=== PATIENT | female | born 1930 | race Caucasian/White ===

== ENCOUNTER 2017-10-03 22:08 | Inpatient (IN) | payer MEDICARE, OTHER ==
[~2017-10-03] VITALS: Ht 160 cm; Wt 84.0 kg
[~2017-10-03 22:08] MED LIST: ALEN70TA45 PO; CHOL50004 PO; CRAN300T PO; Cephalexin Monohydrate PO; DONE10TA44 PO; ESCI20TA PO; LACT1CAP71 PO; LEVO50TA8 PO; LOPE2CAP PO; LOSA1TAB42 PO; MEMA10TA21 PO; METF500T6 PO; METH1ADH6 TP; METH1TAB29 PO; MULT-1152 PO; PRAV40TA3 PO; PRED20TA PO; SITA50TA PO; TRAZ-182 PO; TUSSIN DM PO; ZADITOR EACHEYE
--- NOTE | 2017-10-03 23:40 | NUR ---
Dr. Elam at bedside for MSE.
--- NOTE | 2017-10-04 00:10 | NUR ---
Respiratory at bedside.
[2017-10-04 00:12] LABS: BASOPHILS % (AUTO) 0.3 % (0.0-2.0); EOSINOPHILS # (AUTO) 0.2 K/uL (0.0-0.7); EOSINOPHILS % (AUTO) 1.2 % (0.0-7.0); HEMATOCRIT 31.9 % (31.2-41.9); HEMOGLOBIN 10.5 g/dL (10.9-14.3); LYMPHOCYTES # (AUTO) 1.5 K/uL (20.0-40.0); LYMPHOCYTES % (AUTO) 11.5 % (20.5-51.5); MEAN CORPUSCULAR HEMOGLOBIN 30.7 uug (24.7-32.8); MEAN CORPUSCULAR HGB CONC 33 g/dL (32.3-35.6); MEAN CORPUSCULAR VOLUME 92.8 fL (75.5-95.3); MONOCYTES % (AUTO) 7.4 % (0.0-11.0); NEUTROPHILS # (AUTO) 10.4 K/uL (1.8-8.9); NEUTROPHILS % (AUTO) 79.6 % (38.5-71.5); PLATELET COUNT (AUTO) 232 K/uL (179-408); RED BLOOD CELL COUNT(AUTO) 3.43 MIL/uL (3.63-4.92); WHITE BLOOD COUNT (AUTO) 13.1 K/uL (3.8-11.8)
[2017-10-04 00:17] LABS: ABG BASE EXCESS -0.7 mmol/L; ABG HCO3 26.5 mmol/L; ABG PH 7.293 (7.350-7.450); ABG PO2 64.3 mmHg (75.0-100.0); ABG SITE LEFT RADIAL; ABG TOTAL HEMOGLOBIN 11.3 G/dL (12.0-16.0); COHb 1.5 % (0.5-1.5); O2Hb 89.5 % (94.0-97.0); VENT MODE Nasal Cannula
[2017-10-04 00:24] LABS: CARBON DIOXIDE 28 mmol/L (21-32); CHLORIDE 101 mmol/L (98-107); GLUCOSE 120 mg/dL (74-106); POTASSIUM 3.8 mmol/L (3.5-5.1); UREA NITROGEN, BLOOD 24 mg/dL (7-18)
[2017-10-04 00:37] LABS: ALANINE AMINOTRANSFERASE 23 U/L (14-59); ALKALINE PHOSPHATASE 79 U/L (50-136); ASPARTATE AMINOTRANSFERASE 16 U/L (15-37); BILIRUBIN,DIRECT 0.1 mg/dL (0.0-0.2); BILIRUBIN,TOTAL 0.3 mg/dL (0.2-1.0); TOTAL PROTEIN, SERUM 6.7 g/dL (6.4-8.2)
[2017-10-04] MEDS ORDERED: ALBUTEROL SULFATE 2.5 MG/3 ML NEBU ONE (00:40)
[2017-10-04] MEDS ORDERED: IPRATROPIUM BROMIDE 0.5 MG/2.5 ML NEBU ONE (00:41)
[2017-10-04] MEDS ORDERED: ALBUTEROL SULFATE 2.5 MG/3 ML NEBU NEB ONE (00:45)
[2017-10-04] MEDS ORDERED: IPRATROPIUM BROMIDE 0.5 MG/2.5 ML NEBU NEB ONE (00:45)
[2017-10-04] MEDS ORDERED: methylPREDNISolone SOD SUCC 125 MG/2 ML VIAL IV ONE (01:00)
[2017-10-04] MEDS ORDERED: NITROGLYCERIN OINT 1 GM PACKET TP ONE ×2 (01:00→01:20)
[2017-10-04] MEDS ORDERED: FUROSEMIDE 20 MG/2 ML VIAL IV ONE (01:00)
--- NOTE | 2017-10-04 01:10 | NUR ---
Dr. Elam on panel call with Dr. Martinez.
[2017-10-04] MEDS ORDERED: Z GUARD REMEDY PASTE 57 GM TUBE TOP PRN (01:15)
[2017-10-04] MEDS ORDERED: MAGNESIUM HYDROXIDE 30 ML LIQUID UDC PO PRN (01:15)
[2017-10-04] MEDS ORDERED: ONDANSETRON 4 MG/2 ML VIAL IV PRN (01:15)
[2017-10-04] MEDS ORDERED: FUROSEMIDE 40 MG/4 ML VIAL ONE (01:20)
[2017-10-04] MEDS ORDERED: methylPREDNISolone SOD SUCC 125 MG/2 ML VIAL ONE (01:21)
--- NOTE | 2017-10-04 01:34 | NUR ---
Report given to Luisa BOCANEGRA tele.
[2017-10-04 01:42] LABS: *BILIRUBIN,URIN NEGATIVE (NEGATIVE); *BLOOD, URINE 2+ (NEGATIVE); *CLARITY,URINE CLOUDY (CLEAR); *COLOR,URINE LIGHT YELLOW (YELLOW); *KETONES,URINE NEGATIVE (NEGATIVE); *PROTEIN,URINE 1+ (NEGATIVE); *UROBILINOGEN,URINE 0.2 E.U./dl (NORMAL); LEUKOCYTE ESTERASE ,URINE 3+ (NEGATIVE); NITRITE, URINE NEGATIVE (NEGATIVE); UGLUCOSE NEGATIVE (NEGATIVE)
[2017-10-04 02:00] LABS: RBC,URINE 20-50 /HPF (0-3); WBC,URINE TNTC /HPF (0-3)
[2017-10-04 02:01] LABS: BACTERIA,URINE MANY /HPF (NONE SEEN); SQUAMOUS EPITHELIAL CELL,UR FEW /HPF (NONE SEEN)
--- NOTE | 2017-10-04 02:10 | NUR ---
Admitted a 87 years old female with Diagnosis of COPD. Patient AAO to self only. Able to answer simple questions. With periods of confusion. On O2 at 3LPM via NC in place. Crackles and wheezes heard to lungs upon auscultation. Not in respiratory distress. O2 sat at 94%. HOB elevated. Frequent cough, mostly non-productive. NSR on tele at 73/min. IV site on left hand intact and patent. Accompanied by daughter Shaista. Routine admission care done. Plan of care initiated, Safety measure and call covarrubias within reach.
[2017-10-04 02:30] VITALS: BP 119/53
[2017-10-04 04:00] VITALS: BP 115/67
[2017-10-04] MEDS: ALBUTEROL SULFATE 2.5 MG/ 0.5 ML NEBU NEB PRN ×3 (04:01→22:54)
[2017-10-04] MEDS: methylPREDNISolone SOD SUCC 40 MG/ML VIAL IV SCH ×4 (05:00→23:55)
--- NOTE | 2017-10-04 06:05 | NUR ---
Patient AO to self only. On continuous O2 at 3LPM via NC in place. O2 sat at 95%. Audible breath sound. Crackles and wheezes heard to lungs upon auscultation. Frequent cough, mostly non-productive. Breathing treatment given by RT. NSR on tele at 79/min. IV site on left hand intact and patent. Safety measure maintained and call covarrubias within reach.
--- NOTE | 2017-10-04 07:54 | NUR ---
RECEIVED AN 87 years old female pt, asa case of COPD. Patient AAO to self only. Able to answer simple questions. With periods of confusion. On O2 at 3LPM via NC in place. Crackles and wheezes heard to lungs upon auscultation. HOB elevated. NSR on tele at 73/min. has a 2 iv lines, left AC, rt hand both patent intact and patent [id number]. pt urinating freely walks steady with one person assistance. all Safety measures taken and call covarrubias within reach. Addendum: 10/04/17 at 1002 by CROW CABEZAS RN INCORRECT PATIENT NOTES
[2017-10-04] MEDS ORDERED: DEXTROSE 50% 50 ML DISP.SYRIN IV PRN (08:30)
[2017-10-04] MEDS: CEFTRIAXONE 1 G in IV DEXTROSE 5% 50 ML IV SCH (09:10)
--- NOTE | 2017-10-04 09:15 | NUR ---
PATIENT NOTED TO HAVE WHEEZING, COUGHING NON PRODUCTIVE. PT ON 3L/NC SATURATING 93-94%, NO SOB, PT IS RESPONSIVE. BREATHING TX ORDERED. PT SEEN BY CHILD LIFE SPECIALIST. WILL CONTINUE TO MONITOR.
[2017-10-04 10:00] VITALS: BP 117/56
[2017-10-04] MEDS: IPRATROPIUM BROMIDE 0.5 MG/2.5 ML NEBU NEB SCH ×4 (11:30→22:56)
[2017-10-04] MEDS: ALBUTEROL SULFATE 2.5 MG/3 ML NEBU NEB SCH ×3 (11:30→19:30)
[2017-10-04] MEDS ORDERED: FUROSEMIDE 40 MG/4 ML VIAL IV ONE (11:45)
[2017-10-04] MEDS: BLOOD SUGAR DIAGNOSTIC 1 EACH STRIP VI SCH ×3 (11:49→20:49)
[2017-10-04] MEDS: INSULIN REGULAR, HUMAN 300 UNIT/3 ML VIAL SQ PRN ×3 (12:02→20:55)
--- NOTE | 2017-10-04 12:24 | NUR ---
PRN HHN TX GIVEN AT 0958. NEW ORDER FOR HHN TX TO BE GIVEN Q4. NEXT TX DUE AT 1530.
[2017-10-04] MEDS ORDERED: CRANBERRY EXTRACT 300 MG PO SCH (13:00)
[2017-10-04] MEDS: GUAIFENESIN SUGAR FREE 100 MG/5 ML UDC PO PRN ×2 (15:16→21:02)
[2017-10-04 15:28] VITALS: BP 129/76
[2017-10-04] MEDS ORDERED: MEMANTINE HCL 10 MG TABLET PO SCH (17:00)
[2017-10-04] MEDS: MEMANTINE HCL 10 MG TABLET PO SCH (17:06)
[2017-10-04] MEDS ORDERED: Medication Not On Formulary EA (Pravastatin Sodium 1 TAB) PO SCH (18:00)
--- NOTE | 2017-10-04 18:04 | NUR ---
PATIENT ALERT, RESPONSIVE, IN NO DISTRESS. PATIENT STILL NOTED TO HAVE NON PRODUCTIVE COUGH, WHEEZING, NO SOB. PT'S WHEEZING AND COUGH SLIGHTLY BETTER THAN THIS MORNING. PT STATED "BETTER" WHEN ASKED HOW SHE IS. ASSISTED PATIENT WITH MEALS, KEPT CLEAN/DRY. ACCUCHECKS ORDERED. IV ANTIBIOTICS ADMINISTERED ORDERED NO ADVERSE REACTION NOTED. SAFETY MEASURES IN PLACE. CALL LIGHT WITHIN REACH. WILL CONTINUE TO MONITOR AND ENDORSE TO ONCOMING SHIFT RN.
--- NOTE | 2017-10-04 18:19 | NUR ---
PATIENT ON TELE SINUS RHYTHM.
--- NOTE | 2017-10-04 19:10 | NUR ---
RECEIVED PT ASLEEP ON BED. ON TELE MONITOR SINUS RHYTHM WITH HR OF 79. ON O2 3L, TOLERATED WELL. IV SITE ON L HAND, PATENT AND INTACT. SAFETY MEASURES INITIATED, CALL WATT WITHIN REACH.
[2017-10-04 20:41] VITALS: BP 128/63
[2017-10-04] MEDS: ATORVASTATIN 10 MG TABLET PO SCH (20:47)
[2017-10-05 00:33] VITALS: BP 122/55
[2017-10-05 04:29] VITALS: BP 125/55
[2017-10-05] MEDS: GUAIFENESIN SUGAR FREE 100 MG/5 ML UDC PO PRN ×2 (05:38→20:05)
[2017-10-05] MEDS: ALBUTEROL SULFATE 2.5 MG/ 0.5 ML NEBU NEB PRN (05:45)
[2017-10-05] MEDS ORDERED: methylPREDNISolone SOD SUCC 40 MG/ML VIAL ONE (06:30)
[2017-10-05] MEDS: methylPREDNISolone SOD SUCC 40 MG/ML VIAL IV SCH (06:37)
[2017-10-05] MEDS: LEVOTHYROXINE SODIUM 50 MCG TABLET PO SCH (06:37)
[2017-10-05] MEDS: BLOOD SUGAR DIAGNOSTIC 1 EACH STRIP VI SCH ×4 (06:47→21:42)
[2017-10-05 06:50] LABS: BASOPHILS % (AUTO) 0.1 % (0.0-2.0); HEMATOCRIT 30.9 % (31.2-41.9); HEMOGLOBIN 10.2 g/dL (10.9-14.3); LYMPHOCYTES % (AUTO) 6.4 % (20.5-51.5); MEAN CORPUSCULAR HEMOGLOBIN 30.7 uug (24.7-32.8); MEAN CORPUSCULAR HGB CONC 33 g/dL (32.3-35.6); MEAN CORPUSCULAR VOLUME 92.8 fL (75.5-95.3); MONOCYTES # (AUTO) 0.3 K/uL (2.0-10.0); MONOCYTES % (AUTO) 1.8 % (0.0-11.0); NEUTROPHILS % (AUTO) 91.7 % (38.5-71.5); PLATELET COUNT (AUTO) 263 K/uL (179-408); RED BLOOD CELL COUNT(AUTO) 3.33 MIL/uL (3.63-4.92); WHITE BLOOD COUNT (AUTO) 16.3 K/uL (3.8-11.8)
--- NOTE | 2017-10-05 06:53 | NUR ---
pt alert and responsive, on tele sinus rhythm with HR of 77, on O2 running on 3L, tolerated well. IV site on L hand, patent and intact. all needs attended and met. safe environment maintained at all times, call covarrubias within reach.
[2017-10-05 07:04] LABS: ALANINE AMINOTRANSFERASE 22 U/L (14-59); ALKALINE PHOSPHATASE 75 U/L (50-136); ASPARTATE AMINOTRANSFERASE 12 U/L (15-37); BILIRUBIN,TOTAL 0.2 mg/dL (0.2-1.0); CARBON DIOXIDE 27 mmol/L (21-32); CHLORIDE 103 mmol/L (98-107); CREATINE KINASE, TOTAL 69 U/L (26-192); CREATININE 1.8 mg/dL (0.6-1.3); GLUCOSE 226 mg/dL (74-106); MAGNESIUM 2.2 mg/dL (1.8-2.4); PHOSPHOROUS 2.9 mg/dL (2.5-4.9); TOTAL PROTEIN, SERUM 6.7 g/dL (6.4-8.2); UREA NITROGEN, BLOOD 36 mg/dL (7-18)
[2017-10-05] MEDS: ALBUTEROL SULFATE 2.5 MG/3 ML NEBU NEB SCH ×4 (07:31→19:35)
[2017-10-05] MEDS: IPRATROPIUM BROMIDE 0.5 MG/2.5 ML NEBU NEB SCH ×4 (07:31→19:35)
[2017-10-05] MEDS: INSULIN REGULAR, HUMAN 300 UNIT/3 ML VIAL SQ PRN ×3 (08:00→16:05)
[2017-10-05] MEDS: CHOLECALCIFEROL 1,000 UNIT TABLET PO SCH (08:02)
[2017-10-05] MEDS: LOSARTAN POTASSIUM 50 MG TABLET PO SCH (08:06)
[2017-10-05] MEDS: HYDROCHLOROTHIAZIDE 12.5 MG CAPSULE PO SCH (08:06)
[2017-10-05] MEDS: DONEPEZIL 10 MG TABLET PO SCH (08:06)
[2017-10-05] MEDS: MEMANTINE HCL 10 MG TABLET PO SCH ×2 (08:07→16:02)
[2017-10-05 08:20] LABS: ABG BASE EXCESS -2.9 mmol/L; ABG HCO3 22.4 mmol/L; ABG PCO2 40.8 mmHg (35.0-45.0); ABG PH 7.357 (7.350-7.450); ABG SITE RIGHT RADIAL; ABG TOTAL HEMOGLOBIN 11.4 G/dL (12.0-16.0); COHb 1.3 % (0.5-1.5); MetHb 0.2 % (0.0-1.5)
[2017-10-05] MEDS: CEFTRIAXONE 1 G in IV DEXTROSE 5% 50 ML IV SCH (08:51)
[2017-10-05] MEDS ORDERED: Medication Not On Formulary EA (Losartan/Hydrochlorothiazide (Losartan-Hctz 100-12.5 Mg PO SCH (09:00)
[2017-10-05] MEDS ORDERED: CEFTRIAXONE 1 G in IV DEXTROSE 5% 50 ML IV SCH (09:30)
[2017-10-05 11:12] VITALS: BP 124/51
[2017-10-05] MEDS: methylPREDNISolone SOD SUCC 125 MG/2 ML VIAL IV SCH ×3 (11:41→23:51)
[2017-10-05] MEDS ORDERED: INSULIN REGULAR, HUMAN 300 UNIT/3 ML VIAL SQ ONE (12:15)
[2017-10-05] MEDS ORDERED: DEXTROSE 50% 50 ML DISP.SYRIN IV PRN (12:30)
[2017-10-05 15:32] VITALS: BP 124/55
[2017-10-05 20:00] VITALS: BP 137/54
[2017-10-05] MEDS: ATORVASTATIN 10 MG TABLET PO SCH (20:05)
[2017-10-05] MEDS: HYDROCODONE/APAP 5-325MG TABLET PO PRN (20:05)
[2017-10-05] MEDS: Z GUARD REMEDY PASTE 57 GM TUBE TOP SCH (20:06)
[2017-10-05] MEDS: INSULIN REGULAR, HUMAN 300 UNITS/3 ML VIAL SQ PRN (21:44)
[2017-10-06 00:29] VITALS: BP 132/60
[2017-10-06 04:01] VITALS: BP 148/61
[2017-10-06] MEDS: IPRATROPIUM BROMIDE 0.5 MG/2.5 ML NEBU NEB SCH ×6 (05:20→22:57)
[2017-10-06] MEDS: ALBUTEROL SULFATE 2.5 MG/3 ML NEBU NEB SCH ×6 (05:20→22:57)
[2017-10-06] MEDS: LEVOTHYROXINE SODIUM 50 MCG TABLET PO SCH (05:27)
[2017-10-06] MEDS: methylPREDNISolone SOD SUCC 125 MG/2 ML VIAL IV SCH ×3 (05:27→17:00)
--- NOTE | 2017-10-06 05:36 | NUR ---
Patient slightly short of breath. Repositioned in bed. Paged RT, breathing treatment provided.
[2017-10-06] MEDS: BLOOD SUGAR DIAGNOSTIC 1 EACH STRIP VI SCH ×4 (06:14→20:32)
[2017-10-06 06:29] LABS: BASOPHILS % (AUTO) 0.1 % (0.0-2.0); HEMATOCRIT 31.6 % (31.2-41.9); HEMOGLOBIN 10.5 g/dL (10.9-14.3); LYMPHOCYTES # (AUTO) 1.1 K/uL (20.0-40.0); LYMPHOCYTES % (AUTO) 6.8 % (20.5-51.5); MEAN CORPUSCULAR HEMOGLOBIN 30.6 uug (24.7-32.8); MEAN CORPUSCULAR HGB CONC 33 g/dL (32.3-35.6); MEAN CORPUSCULAR VOLUME 92.4 fL (75.5-95.3); MONOCYTES # (AUTO) 0.4 K/uL (2.0-10.0); MONOCYTES % (AUTO) 2.4 % (0.0-11.0); NEUTROPHILS # (AUTO) 14.1 K/uL (1.8-8.9); NEUTROPHILS % (AUTO) 90.7 % (38.5-71.5); PLATELET COUNT (AUTO) 297 K/uL (179-408); RED BLOOD CELL COUNT(AUTO) 3.43 MIL/uL (3.63-4.92); WHITE BLOOD COUNT (AUTO) 15.5 K/uL (3.8-11.8)
[2017-10-06 06:49] LABS: CARBON DIOXIDE 30 mmol/L (21-32); CHLORIDE 106 mmol/L (98-107); CREATININE 1.8 mg/dL (0.6-1.3); GLUCOSE 261 mg/dL (74-106); POTASSIUM 4.1 mmol/L (3.5-5.1); UREA NITROGEN, BLOOD 42 mg/dL (7-18)
[2017-10-06] MEDS: ALBUTEROL SULFATE 2.5 MG/ 0.5 ML NEBU NEB PRN (07:19)
--- NOTE | 2017-10-06 07:20 | NUR ---
Fairly rested, incontinence care provided. Audible inspiratory/expiratory wheezing noted at this time. Report given to Langston RN. Vital signs WNL, sinus rhythm on the monitor.
[2017-10-06] MEDS: LOSARTAN POTASSIUM 50 MG TABLET PO SCH (08:00)
[2017-10-06] MEDS: MEMANTINE HCL 10 MG TABLET PO SCH ×2 (08:00→17:00)
--- NOTE | 2017-10-06 08:00 | NUR ---
Plan of care implemented for pain management, aspiration and fall precaution. Pt is more awake and alert today but still forgetful. Instructed DAY CAMP UNIT LEADER to thicken liquids and HOB when feeding.
[2017-10-06] MEDS: DONEPEZIL 10 MG TABLET PO SCH (08:01)
[2017-10-06] MEDS: HYDROCHLOROTHIAZIDE 12.5 MG CAPSULE PO SCH (08:01)
[2017-10-06] MEDS: HYDROCODONE/APAP 5-325MG TABLET PO PRN ×2 (08:01→20:13)
[2017-10-06] MEDS: INSULIN REGULAR, HUMAN 300 UNIT/3 ML VIAL SQ PRN ×3 (08:10→17:07)
[2017-10-06] MEDS: CEFTRIAXONE 1 G in IV DEXTROSE 5% 50 ML IV SCH (09:22)
[2017-10-06] MEDS: Z GUARD REMEDY PASTE 57 GM TUBE TOP SCH ×2 (09:22→20:15)
[2017-10-06] MEDS: CHOLECALCIFEROL 1,000 UNIT TABLET PO SCH (09:22)
[2017-10-06] MEDS ORDERED: IV NORMAL SALINE 500 ML BAG IV ONE (10:30)
[2017-10-06 11:02] VITALS: BP 149/71
[2017-10-06] MEDS: ACETAMINOPHEN 325 MG TABLET PO PRN (12:55)
[2017-10-06 15:16] VITALS: BP 148/63
--- NOTE | 2017-10-06 18:00 | NUR ---
Pt is in no acute distress. Plan of care effective. Notified ID re low grade fevers - no new orders received. Pt's temp managed with tylenol and cooling measures current temp 98.9
--- NOTE | 2017-10-06 19:20 | NUR ---
Received patient lying in bed. AAOX1 only. In no acute distress. On O2 at 3LPM via NC. IV site on left hand intact and patent. Afebrile at this time. with temp of 98.0 orally. Safety measure initiated and call covarrubias within reach.
[2017-10-06 20:06] VITALS: BP 148/75
[2017-10-06] MEDS: ATORVASTATIN 10 MG TABLET PO SCH (20:12)
[2017-10-06] MEDS: INSULIN REGULAR, HUMAN 300 UNITS/3 ML VIAL SQ PRN (20:36)
--- NOTE | 2017-10-06 20:39 | NUR ---
Patient FSBS = 443mg/dl, 10 units of Humalin R given per sliding scale. Bethanie Patton made aware of result with no new order given.
--- NOTE | 2017-10-06 21:59 | NUR ---
PATIENT HAS BEEN RESTLESS, FREQUENTLY SCREAMING. TRIED TO REORIENT AND REDIRECT BUT CONTINUE TO BE RESTLESS AND ANXIOUS. SCREEN WRITER Bethanie ANDERSEN MADE AWARE WITH ORDER TO GIVE PT LORAZEPAM 1MG Q6 HRS PRN FOR ANXIETY.
[2017-10-06] MEDS ORDERED: LORAZEPAM 2 MG/1 ML VIAL IV PRN (22:00)
[2017-10-07] MEDS: methylPREDNISolone SOD SUCC 125 MG/2 ML VIAL IV SCH ×2 (00:14→05:02)
[2017-10-07] MEDS: IPRATROPIUM BROMIDE 0.5 MG/2.5 ML NEBU NEB SCH ×5 (03:07→19:44)
[2017-10-07] MEDS: ALBUTEROL SULFATE 2.5 MG/3 ML NEBU NEB SCH ×5 (03:07→19:44)
[2017-10-07 04:00] VITALS: BP 141/69
[2017-10-07] MEDS: ACETAMINOPHEN 325 MG TABLET PO PRN ×2 (04:32→16:49)
--- NOTE | 2017-10-07 04:32 | NUR ---
With temperature of 99.7 orally. Cooling measure as well as Tylenol 650mg po provided. Will continue to monitor.
--- NOTE | 2017-10-07 06:16 | NUR ---
AAOX1 only. Able to follow simple direction and answer simple questions. In no acute distress. Still with occasional audible wheezing. On O2 at 3LPM via NC. HOB kept elevated. IV site on left hand intact and patent. Safety measure maintained and call covarrubias within reach.
[2017-10-07] MEDS: LEVOTHYROXINE SODIUM 50 MCG TABLET PO SCH (06:23)
[2017-10-07] MEDS: BLOOD SUGAR DIAGNOSTIC 1 EACH STRIP VI SCH ×3 (06:42→16:21)
[2017-10-07 06:43] LABS: HEMATOCRIT 31.9 % (31.2-41.9); HEMOGLOBIN 10.6 g/dL (10.9-14.3); LYMPHOCYTES # (AUTO) 0.6 K/uL (20.0-40.0); LYMPHOCYTES % (AUTO) 4.9 % (20.5-51.5); MEAN CORPUSCULAR HEMOGLOBIN 30.8 uug (24.7-32.8); MEAN CORPUSCULAR HGB CONC 33 g/dL (32.3-35.6); MEAN CORPUSCULAR VOLUME 92.8 fL (75.5-95.3); MONOCYTES # (AUTO) 0.4 K/uL (2.0-10.0); MONOCYTES % (AUTO) 3.3 % (0.0-11.0); NEUTROPHILS # (AUTO) 10.7 K/uL (1.8-8.9); NEUTROPHILS % (AUTO) 91.8 % (38.5-71.5); PLATELET COUNT (AUTO) 290 K/uL (179-408); RED BLOOD CELL COUNT(AUTO) 3.43 MIL/uL (3.63-4.92); WHITE BLOOD COUNT (AUTO) 11.7 K/uL (3.8-11.8)
[2017-10-07 06:50] LABS: CARBON DIOXIDE 33 mmol/L (21-32); CHLORIDE 105 mmol/L (98-107); POTASSIUM 3.3 mmol/L (3.5-5.1); UREA NITROGEN, BLOOD 44 mg/dL (7-18)
[2017-10-07 07:12] LABS: GLUCOSE 368 mg/dL (74-106)
--- NOTE | 2017-10-07 08:00 | NUR ---
Plan of care implemented for pain management, aspiration and fall precaution. Pt is more awake and alert today but still forgetful. Instructed HOOP DRIVING MACHINE OPERATOR to thicken liquids and HOB when feeding. Awaiting ST eval. Call light is within reach.
[2017-10-07] MEDS: CHOLECALCIFEROL 1,000 UNIT TABLET PO SCH (08:02)
[2017-10-07] MEDS: HYDROCHLOROTHIAZIDE 12.5 MG CAPSULE PO SCH (08:02)
[2017-10-07] MEDS: MEMANTINE HCL 10 MG TABLET PO SCH ×2 (08:03→16:21)
[2017-10-07] MEDS: LOSARTAN POTASSIUM 50 MG TABLET PO SCH (08:03)
[2017-10-07] MEDS: DONEPEZIL 10 MG TABLET PO SCH (08:03)
[2017-10-07] MEDS: INSULIN REGULAR, HUMAN 300 UNIT/3 ML VIAL SQ PRN ×3 (08:28→16:24)
[2017-10-07] MEDS: Z GUARD REMEDY PASTE 57 GM TUBE TOP SCH (08:39)
[2017-10-07] MEDS: CEFTRIAXONE 1 G in IV DEXTROSE 5% 50 ML IV SCH (08:39)
[2017-10-07 11:58] VITALS: BP 142/85
[2017-10-07 12:07] LABS: ALBUMIN 2.9 g/dL (2.9-4.4); ALPHA-1-GLOBULIN 0.4 g/dL (0.0-0.4); ALPHA-2-GLOBULIN 1.1 g/dL (0.4-1.0); GAMMA GLOBULIN 0.4 g/dL (0.4-1.8); M-SPIKE Not Observed g/dL (Not Observed)
[2017-10-07] MEDS ORDERED: PRED20TA PO (12:09)
[2017-10-07] MEDS ORDERED: CEPH500C2 PO (12:09)
[2017-10-07] MEDS ORDERED: POTASSIUM CHLORIDE 10 MEQ TAB.PRT.SR PO ONE (14:30)
--- NOTE | 2017-10-07 14:30 | NUR ---
Spoke with bright daughter states that [facility] wont be taking patient back. Notified [facility] Case management of situation and gave number to bright. [phone]. Donte to find placement for patient.
[2017-10-07 16:00] VITALS: BP 150/69
--- NOTE | 2017-10-07 16:04 | NUR ---
received patient from [place], DALJIT. patient stable upon initial assessment. patient asleep in bed no s/s acute distress. oxygen in nares. will follow up on possible DC plans
--- NOTE | 2017-10-07 16:50 | NUR ---
tylenol PRN given for low grade temp of 99.6. aware. notified that case management is looking for placement for DC and ok with plan
--- NOTE | 2017-10-07 18:40 | NUR ---
[facility] will be accepting patient. aware and ok for discharge today. tylenol effective. all discharge paperwork complete and signed by 2 nurses due to patients dementia and confused status. report given to transport staff by charge nurse. belongings list completed. patient stable for discharge. ambulance scheduled to arrive at 1945. will report to oncoming shift
--- NOTE | 2017-10-07 20:00 | NUR ---
Patient was discharged on stable condition. Vital signs stable. Belongings left with patient. Patient going to [facility].
[2017-10-07 20:03] VITALS: BP 161/59
[2017-10-07] MEDS ORDERED: methylPREDNISolone SOD SUCC 125 MG/2 ML VIAL IV SCH (21:00)
== END 2017-10-07 20:07 | DRG 291 ==
LOC: ER 22:10 → TELE 10-04 01:55 → MED 10-06 15:00
PROVIDERS: ADMIT Internal Medicine; ATTEND Nurse Practitioner Acute Care
DX: I13.0 Hypertensive heart and chronic kidney disease with heart failure and stage 1 through stage 4 chronic kidney disease, or unspecified chronic kidney disease (principal); I50.33 Acute on chronic diastolic (congestive) heart failure; J96.21 Acute and chronic respiratory failure with hypoxia; J96.22 Acute and chronic respiratory failure with hypercapnia; N17.0 Acute kidney failure with tubular necrosis; G93.40 Encephalopathy, unspecified; J44.1 Chronic obstructive pulmonary disease with (acute) exacerbation; N39.0 Urinary tract infection, site not specified; J98.11 Atelectasis; E11.22 Type 2 diabetes mellitus with diabetic chronic kidney disease; E11.65 Type 2 diabetes mellitus with hyperglycemia; N18.9 Chronic kidney disease, unspecified; Z79.84 Long term (current) use of oral hypoglycemic drugs; E11.36 Type 2 diabetes mellitus with diabetic cataract; F03.90 Unspecified dementia, unspecified severity, without behavioral disturbance, psychotic disturbance, mood disturbance, and anxiety; Z96.651 Presence of right artificial knee joint; E78.5 Hyperlipidemia, unspecified; E03.9 Hypothyroidism, unspecified; D63.8 Anemia in other chronic diseases classified elsewhere; B96.20 Unspecified Escherichia coli [E. coli] as the cause of diseases classified elsewhere; Z16.11 Resistance to penicillins; Z16.23 Resistance to quinolones and fluoroquinolones; T38.0X5A Adverse effect of glucocorticoids and synthetic analogues, initial encounter; Y92.099 Unspecified place in other non-institutional residence as the place of occurrence of the external cause; D72.829 Elevated white blood cell count, unspecified; E66.9 Obesity, unspecified; Z68.32 Body mass index [BMI] 32.0-32.9, adult; Z98.42 Cataract extraction status, left eye; Z98.41 Cataract extraction status, right eye
CPT/HCPCS: 36415; 36600; 70030-TC; 71045; 76770; 83605; 83735; 83970; 84100; 84155; 84165; 84443; 84480; 85025; 85730; 87040; 87086; 92610; 93005; 93307; 94640; 94664; A4663; C1758; J0696; J1815; J1940; J2060; J2920; J2930; J3590; J7030; J7050; J7060

== ENCOUNTER 2018-03-19 09:40 | Inpatient (IN) | payer OTHER ==
[~2018-03-19] VITALS: Ht 160 cm; Wt 77.1 kg
[~2018-03-19 09:40] MED LIST changes: -ALEN70TA45 PO; +ALEN70TA6 PO; +CEPH500C2 PO; -Cephalexin Monohydrate PO; +METF-440 PO; -METF500T6 PO
--- NOTE | 2018-03-19 09:55 | NUR ---
PT BIB [facility] FROM [facility]. PER EMS, PT IS BASELINE A/OX4, BUT THIS MORNING FOUND ALTERED. PT IS CURRENTLY A/OX1 W/ PURPOSEFUL MOVEMENTS AND FOLLOWING COMMANDS. BS WAS 190 IN THE FIELD. NO FACIAL DROOPS. PT DENIES PAIN AT THIS TIME. ER MD AT BEDSIDE FOR MSE.
[2018-03-19 10:19] LABS: BASOPHILS % (AUTO) 0.2 % (0.0-2.0); EOSINOPHILS # (AUTO) 0.1 K/uL (0.0-0.7); EOSINOPHILS % (AUTO) 0.4 % (0.0-7.0); HEMATOCRIT 36.8 % (31.2-41.9); HEMOGLOBIN 12.2 g/dL (10.9-14.3); LYMPHOCYTES # (AUTO) 0.9 K/uL (20.0-40.0); LYMPHOCYTES % (AUTO) 5.9 % (20.5-51.5); MEAN CORPUSCULAR HEMOGLOBIN 29.3 uug (24.7-32.8); MEAN CORPUSCULAR HGB CONC 33 g/dL (32.3-35.6); MEAN CORPUSCULAR VOLUME 88.3 fL (75.5-95.3); MONOCYTES # (AUTO) 0.8 K/uL (2.0-10.0); MONOCYTES % (AUTO) 5.1 % (0.0-11.0); NEUTROPHILS # (AUTO) 13.4 K/uL (1.8-8.9); NEUTROPHILS % (AUTO) 88.4 % (38.5-71.5); PLATELET COUNT (AUTO) 269 K/uL (179-408); RED BLOOD CELL COUNT(AUTO) 4.17 MIL/uL (3.63-4.92); WHITE BLOOD COUNT (AUTO) 15.1 K/uL (3.8-11.8)
--- NOTE | 2018-03-19 10:20 | NUR ---
PT TAKEN TO RADIOLOGY FOR CT SCAN.
[2018-03-19 10:25] LABS: *BILIRUBIN,URIN NEGATIVE (NEGATIVE); *BLOOD, URINE 2+ (NEGATIVE); *CLARITY,URINE CLOUDY (CLEAR); *COLOR,URINE YELLOW (YELLOW); *KETONES,URINE NEGATIVE (NEGATIVE); *UROBILINOGEN,URINE 0.2 E.U./dl (NORMAL); LEUKOCYTE ESTERASE ,URINE 3+ (NEGATIVE); NITRITE, URINE NEGATIVE (NEGATIVE); UGLUCOSE NEGATIVE (NEGATIVE)
[2018-03-19 10:26] LABS: CARBON DIOXIDE 33 mmol/L (21-32); CHLORIDE 96 mmol/L (98-107); CREATININE 1.8 mg/dL (0.6-1.3); GLUCOSE 164 mg/dL (74-106); POTASSIUM 3.1 mmol/L (3.5-5.1); UREA NITROGEN, BLOOD 31 mg/dL (7-18)
[2018-03-19 10:31] LABS: ETHANOL < 3 MG/DL (0-0)
[2018-03-19] MEDS ORDERED: PREDNIZONE PO (10:31)
[2018-03-19] MEDS ORDERED: [UNRECOGNIZED DRUG - OTHER] (10:31)
[2018-03-19] MEDS ORDERED: PROBIOTIC 10 PO (10:31)
[2018-03-19] MEDS ORDERED: IPRATROPIUM INH (10:31)
[2018-03-19] MEDS ORDERED: CHOL200078 PO (10:31)
[2018-03-19] MEDS ORDERED: CRAN200C5 PO ×2 (10:31)
[2018-03-19] MEDS ORDERED: DEXT15CA PO (10:31)
[2018-03-19] MEDS ORDERED: ALBU2.5V13 NEB (10:31)
[2018-03-19] MEDS ORDERED: ASPI-605 PO (10:31)
[2018-03-19] MEDS ORDERED: ESTRACE (10:31)
[2018-03-19] MEDS ORDERED: ALBUTEROL INH (10:31)
[2018-03-19] MEDS ORDERED: ACET-73 PO (10:31)
[2018-03-19] MEDS ORDERED: LORA0.5T PO (10:31)
[2018-03-19] MEDS ORDERED: FURO20TA4 PO (10:31)
[2018-03-19] MEDS ORDERED: AMLO5TAB9 PO (10:31)
[2018-03-19] MEDS ORDERED: DOCU100C36 PO (10:31)
[2018-03-19 10:36] LABS: BACTERIA,URINE FEW /HPF (NONE SEEN); SQUAMOUS EPITHELIAL CELL,UR FEW /HPF (NONE SEEN); WBC,URINE 20-50 /HPF (0-3)
--- NOTE | 2018-03-19 10:36 | NUR ---
PT BACK IN ER FROM RADIOLOGY.
[2018-03-19 10:41] LABS: ACETAMINOPHEN < 2.0 ug/mL (10-30); ALANINE AMINOTRANSFERASE 30 U/L (14-59); ALKALINE PHOSPHATASE 61 U/L (50-136); ASPARTATE AMINOTRANSFERASE 10 U/L (15-37); BILIRUBIN,DIRECT 0.1 mg/dL (0.0-0.2); BILIRUBIN,TOTAL 0.4 mg/dL (0.2-1.0); TOTAL PROTEIN, SERUM 6.4 g/dL (6.4-8.2)
[2018-03-19 10:42] LABS: *AMPHETAMINE, URINE NEGATIVE (NEGATIVE); *BARBITURATE, URINE NEGATIVE (NEGATIVE); *CANNABINOID, URINE NEGATIVE (NEGATIVE); *COCCAINE, URINE NEGATIVE (NEGATIVE); *OPIATE, URINE NEGATIVE (NEGATIVE); *PHENCYCLIDINE SCREEN,URINE NEGATIVE (NEGATIVE)
[2018-03-19 10:53] LABS: THYROID STIMULATING HORMONE 0.858 mIU/mL (0.358-3.740)
[2018-03-19] MEDS ORDERED: IV NORMAL SALINE 1000 ML BAG IV ONE (11:15)
[2018-03-19] MEDS ORDERED: CEFTRIAXONE 1 G in IV DEXTROSE 5% 50 ML IV ONE (11:15)
[2018-03-19] MEDS ORDERED: GENTAMICIN SULFATE INJ 80 MG in IV DEXTROSE 5% 100 ML IV ONE (11:15)
[2018-03-19] MEDS ORDERED: CEFTRIAXONE 1 G VIAL ONE (11:19)
[2018-03-19] MEDS ORDERED: GENTAMICIN SULFATE 80 MG/2 ML VIAL ONE (11:31)
--- NOTE | 2018-03-19 11:35 | NUR ---
PAGED EPIC FOR PANEL CALL - AWAITING CALLBACK FROM JOSE LUIS WAGNER. ATTEMPT 1.
--- NOTE | 2018-03-19 11:41 | NUR ---
MILA LAMBERT SPEAKING W/ JOSE LUIS VP PROJECT ON PHONE RE PT'S ADMISSION.
--- NOTE | 2018-03-19 11:47 | NUR ---
MILA LAMBERT AT BEDSIDE FOR PT UPDATE.
[2018-03-19] MEDS ORDERED: Z GUARD REMEDY PASTE 57 GM TUBE TOP PRN (12:15)
[2018-03-19] MEDS ORDERED: ACETAMINOPHEN 325 MG TABLET PO PRN (12:15)
[2018-03-19] MEDS ORDERED: MAGNESIUM HYDROXIDE 30 ML LIQUID UDC PO PRN (12:15)
[2018-03-19] MEDS ORDERED: ONDANSETRON 4 MG/2 ML VIAL IV PRN (12:15)
[2018-03-19] MEDS ORDERED: HYDROCODONE/APAP 5-325MG TABLET PO PRN (12:15)
--- NOTE | 2018-03-19 12:22 | NUR ---
AWAITING CALL-BACK FROM PT'S INSURANCE FOR POSSIBLE TRANSFER. PT IS READY FOR ADMISSION - ADMITTING ORDERS FROM ADMITTING HOSPITALIST RECEIVED.
[2018-03-19] MEDS ORDERED: CRANBERRY EXTRACT 300 MG PO SCH (13:00)
[2018-03-19] MEDS ORDERED: ACETAMINOPHEN ES 500 MG TABLET PO SCH (14:00)
--- NOTE | 2018-03-19 14:33 | NUR ---
PT OFFERED DIABETIC MEAL - FEEDING HELPED BY FAMILY AT BEDSIDE.
--- NOTE | 2018-03-19 15:21 | NUR ---
NURSING ADVERTISER, ERNESTO GIRON, NOTIFIED RE PT'S INSURANCE DELAY FOR ADMISSION.
--- NOTE | 2018-03-19 15:54 | NUR ---
MULTIPLE CALLS TO INSURANCE HAVE BEEN MADE BY THE ER WELLNESS PROGRAM MANAGER, CONTINUOUSLY NOTIFIED WITH "PENDING STATUS". ALL NECESSARY DOCUMENTS WERE FAXED OVER TO INSURANCE PROVIDER, STILL NO CALLBACK RE PT'S TRANFER. NURSING WINDING INSPECTOR AND TESTER AND CONTRACT ATTORNEY AWARE, BOTH HAVE AGREED AND CONFIRMED TO ADMIT PT TO OUR TELE UNIT SO TO NOT FURTHER DELAY PT CARE.
--- NOTE | 2018-03-19 16:16 | NUR ---
Pt. admitted to TELE 217, under care of YSABEL AMAYA NP. Belongs List completed
--- NOTE | 2018-03-19 16:16 | NUR ---
ADMITTING REPORT GIVEN TO DALJIT MARTIN.
[2018-03-19 16:43] VITALS: BP 101/41
[2018-03-19] MEDS ORDERED: MEMANTINE HCL 10 MG TABLET PO SCH (17:00)
[2018-03-19] MEDS: DOCUSATE SODIUM 100 MG CAPSULE PO SCH ×2 (17:00→20:30)
--- NOTE | 2018-03-19 17:30 | NUR ---
Patient received asleep, arousable to touch, AOx1, on oxygen at 2LPM/NC, not in any form of acute distress. No complain of any pain or discomfort. With jiménez catheter in place and patent, draining yellow, cloudy urine. Routine admission care done. Fall precaution observed. Call placed within reach. BICYCLE REPAIR TECHNICIAN Komal Pruett aware of admission.
[2018-03-19] MEDS ORDERED: Medication Not On Formulary EA (Pravastatin Sodium 1 TAB) PO SCH (18:00)
--- NOTE | 2018-03-19 19:20 | NUR ---
Received patient in bed. Alert and verbally responsive. Able to make needs known. Daughter at bedside. No c/o pain and discomfort at this time. No acute distress. No SOB. On O2 @ 2L via nasal cannula. IV site on left and right antecubital. Patent and intact. No s/s of infiltration. Bee catheter patent and intact. Draining clear yellow urine. Kept clean and dry. Redness noted on nose. Per daughter it is bc she uses CPAP mask at home and patient scratched scab on nose. No s/s of bleeding at this time. All needs attended to promptly. Call light within reach. Will continue to monitor.
--- NOTE | 2018-03-19 19:21 | NUR ---
Notified CLINICAL MATERIAL HANDLER Komal Pruett regarding due PO medications but patient is on NPO, per CLINICAL MATERIAL HANDLER do nursing swallow eval. Patient passed nursing swallow eval informed CLINICAL MATERIAL HANDLER and said ok to administer PO medication. Endorsed accordingly to night nurse.
[2018-03-19] MEDS: ALBUTEROL SULFATE 2.5 MG/ 0.5 ML NEBU NEB SCH (19:57)
[2018-03-19 20:00] VITALS: BP 123/52
[2018-03-19] MEDS: ATORVASTATIN 10 MG TABLET PO SCH (20:30)
[2018-03-19] MEDS: MEMANTINE HCL 5 MG TABLET PO SCH (20:31)
[2018-03-19] MEDS ORDERED: Medication Not On Formulary EA (Methenamine Hippurate 1 GM) PO SCH (21:00)
[2018-03-19] MEDS ORDERED: DEXTROSE 50% 50 ML DISP.SYRIN IV PRN (21:30)
[2018-03-19] MEDS: BLOOD SUGAR DIAGNOSTIC 1 EACH STRIP VI SCH (21:32)
[2018-03-19] MEDS: INSULIN REGULAR, HUMAN 300 UNIT/3 ML VIAL SQ PRN (21:44)
--- NOTE | 2018-03-19 22:56 | NUR ---
Clarified diet orders with WELL TESTER. New orders noted and carried out.
[2018-03-19] MEDS: IV NS 1000 ML 1,000 ML IV PRN (23:25)
[2018-03-20] VITALS: BP 98/41
[2018-03-20] MEDS: ALBUTEROL SULFATE 2.5 MG/ 0.5 ML NEBU NEB SCH ×4 (00:51→19:16)
[2018-03-20 04:00] VITALS: BP 129/58
[2018-03-20] MEDS: PANTOPRAZOLE SODIUM 40 MG VIAL IV SCH (06:04)
[2018-03-20] MEDS: BLOOD SUGAR DIAGNOSTIC 1 EACH STRIP VI SCH ×4 (06:31→21:02)
--- NOTE | 2018-03-20 06:40 | NUR ---
Patient slept comfortably throughout the night. No c/o pain and discomfort. No acute distress. No SOB. On continuous IVF NS @ 75ml/hr for hydration. Tolerating well. Bee catheter patent and intact. Draining clear yellow urine. Kept clean and dry. All needs attending to promptly. Call light within reach. Will continue to monitor.
[2018-03-20 06:46] LABS: BASOPHILS % (AUTO) 0.1 % (0.0-2.0); EOSINOPHILS # (AUTO) 0.1 K/uL (0.0-0.7); EOSINOPHILS % (AUTO) 0.8 % (0.0-7.0); HEMATOCRIT 30.4 % (31.2-41.9); HEMOGLOBIN 10.2 g/dL (10.9-14.3); LYMPHOCYTES # (AUTO) 0.9 K/uL (20.0-40.0); LYMPHOCYTES % (AUTO) 6.7 % (20.5-51.5); MEAN CORPUSCULAR HEMOGLOBIN 29.3 uug (24.7-32.8); MEAN CORPUSCULAR HGB CONC 33 g/dL (32.3-35.6); MEAN CORPUSCULAR VOLUME 87.7 fL (75.5-95.3); MONOCYTES # (AUTO) 0.6 K/uL (2.0-10.0); NEUTROPHILS # (AUTO) 11.3 K/uL (1.8-8.9); NEUTROPHILS % (AUTO) 87.4 % (38.5-71.5); PLATELET COUNT (AUTO) 214 K/uL (179-408); RED BLOOD CELL COUNT(AUTO) 3.47 MIL/uL (3.63-4.92)
[2018-03-20 06:57] LABS: CARBON DIOXIDE 30 mmol/L (21-32); CHLORIDE 104 mmol/L (98-107); CHOLESTEROL 130 mg/dL (<200); CREATININE 1.5 mg/dL (0.6-1.3); GLUCOSE 118 mg/dL (74-106); HDL CHOLESTEROL 61 mg/dL (40-60); MAGNESIUM 2.2 mg/dL (1.8-2.4); PHOSPHOROUS 2.6 mg/dL (2.5-4.9); TRIGLYCERIDES 110 MG/DL (30-150); UREA NITROGEN, BLOOD 22 mg/dL (7-18)
[2018-03-20 07:10] LABS: THYROID STIMULATING HORMONE 0.988 mIU/mL (0.358-3.740)
--- NOTE | 2018-03-20 07:30 | NUR ---
RECEIVED REPORT FROM WICK AND BASE ASSEMBLER NURSE, PATIENT IN BED ASLEEP. NO DISTRESS NOTED AT THIS TIME, BED IN LOW POSITION, SIDE RAILS UP X2, BED ALARM ON.
[2018-03-20] MEDS ORDERED: Medication Not On Formulary EA (Lactobacillus Combo No.11 (Probiotic) 1 EACH) PO SCH (09:00)
[2018-03-20] MEDS ORDERED: predniSONE 20 MG TABLET PO SCH (09:00)
[2018-03-20] MEDS: LEVOTHYROXINE SODIUM 50 MCG TABLET PO SCH (09:00)
[2018-03-20] MEDS: LOSARTAN POTASSIUM 50 MG TABLET PO SCH (09:00)
[2018-03-20] MEDS ORDERED: Medication Not On Formulary EA (Escitalopram Oxalate (Lexapro) 1 TAB) PO SCH (09:00)
[2018-03-20] MEDS: AMLODIPINE 5 MG TABLET PO SCH (09:00)
[2018-03-20] MEDS ORDERED: CHOLECALCIFEROL 1,000 UNIT TABLET PO SCH ×2 (09:00)
[2018-03-20] MEDS ORDERED: Medication Not On Formulary EA (Losartan/Hydrochlorothiazide (Losartan-Hctz 100-12.5 Mg PO SCH (09:00)
[2018-03-20] MEDS: FUROSEMIDE 20 MG TABLET PO SCH (09:16)
[2018-03-20] MEDS: ESCITALOPRAM OXALATE 10 MG TABLET PO SCH (09:16)
[2018-03-20] MEDS: MEMANTINE HCL 5 MG TABLET PO SCH ×2 (09:17→20:55)
[2018-03-20] MEDS: CULTURELLE CAPSULE PO SCH (09:17)
[2018-03-20] MEDS: DOCUSATE SODIUM 100 MG CAPSULE PO SCH ×3 (09:18→20:55)
[2018-03-20] MEDS: BETA CAROTENE/VIT C & E/MIN TABLET PO SCH (09:19)
[2018-03-20] MEDS: CHOLECALCIFEROL 1,000 UNIT TABLET PO SCH (09:19)
[2018-03-20] MEDS: ASPIRIN EC 81 MG TABLET.DR PO SCH (09:19)
[2018-03-20] MEDS: DONEPEZIL 10 MG TABLET PO SCH (09:19)
[2018-03-20] MEDS: HYDROCHLOROTHIAZIDE 12.5 MG CAPSULE PO SCH (09:26)
[2018-03-20] MEDS: CEFTRIAXONE 1 G in IV DEXTROSE 5% 50 ML IV SCH (10:22)
[2018-03-20 12:09] VITALS: BP 112/41
[2018-03-20] MEDS ORDERED: PRED20TA PO (12:54)
[2018-03-20] MEDS ORDERED: ASCO500C18 PO (12:54)
[2018-03-20] MEDS ORDERED: PROP15DR EACHEYE (12:57)
[2018-03-20] MEDS ORDERED: POTASSIUM CHLORIDE 10 MEQ TAB.PRT.SR PO ONE (13:00)
[2018-03-20] MEDS: IV NS 1000 ML 1,000 ML IV PRN (13:55)
[2018-03-20] MEDS ORDERED: MV-M1CAP18 PO (14:17)
[2018-03-20] MEDS ORDERED: IPRA0.2S48 NEB (14:21)
[2018-03-20 15:47] VITALS: BP 114/50
[2018-03-20] MEDS ORDERED: POTASSIUM CHLORIDE 20 MEQ TAB.PRT.SR PO ONE (17:00)
[2018-03-20] MEDS: INSULIN REGULAR, HUMAN 300 UNIT/3 ML VIAL SQ PRN ×2 (17:15→21:42)
--- NOTE | 2018-03-20 18:02 | NUR ---
CLIENT HAS BEEN COOPERATIVE WITH CARE, BECAME MORE ALERT DAY PROGRESSED. ALL NEEDS MET, NO DISTRESS NOTED AT THIS TIME. BED IN LOW POSITION. SIDE RAILS UP X2.
--- NOTE | 2018-03-20 19:53 | NUR ---
PATIENT IS AWAKE IN BED, AAOX2 WITH CONFUSION. NO S/S OF PAIN OR ACUTE DISTRESS ON ASSESSMENT. SAFETY MEASURES IN PLACE, WILL CONTINUE TO MONITOR PATIENT
[2018-03-20 20:00] VITALS: BP 109/40
[2018-03-20] MEDS: ATORVASTATIN 10 MG TABLET PO SCH (20:55)
[2018-03-21] MEDS: ALBUTEROL SULFATE 2.5 MG/ 0.5 ML NEBU NEB SCH ×3 (00:55→13:41)
[2018-03-21 05:39] VITALS: BP 119/57
[2018-03-21] MEDS: PANTOPRAZOLE SODIUM 40 MG VIAL IV SCH (06:34)
[2018-03-21] MEDS: LEVOTHYROXINE SODIUM 50 MCG TABLET PO SCH (06:34)
[2018-03-21] MEDS: IV NS 1000 ML 1,000 ML IV PRN (06:35)
[2018-03-21] MEDS: BLOOD SUGAR DIAGNOSTIC 1 EACH STRIP VI SCH ×3 (06:43→16:31)
--- NOTE | 2018-03-21 06:48 | NUR ---
PATIENT SLEPT WELL THROUGHOUT THE SHIFT, CONTINUES TO BE CONFUSED BUT ABLE TO REDIRECT. NO ACUTE DISTRESS OR S/S OF PAIN ON THIS SHIFT. SAFETY MEASURES MAINTAINED AT ALL TIMES
[2018-03-21 07:07] LABS: EOSINOPHILS # (AUTO) 0.1 K/uL (0.0-0.7); HEMOGLOBIN 10.4 g/dL (10.9-14.3); MONOCYTES # (AUTO) 0.5 K/uL (2.0-10.0)
[2018-03-21 07:20] LABS: BASOPHILS % (AUTO) 0.2 % (0.0-2.0); EOSINOPHILS % (AUTO) 1.1 % (0.0-7.0); HEMATOCRIT 30.7 % (31.2-41.9); LYMPHOCYTES # (AUTO) 1.1 K/uL (20.0-40.0); LYMPHOCYTES % (AUTO) 11.5 % (20.5-51.5); MEAN CORPUSCULAR HEMOGLOBIN 29.9 uug (24.7-32.8); MEAN CORPUSCULAR HGB CONC 34 g/dL (32.3-35.6); MEAN CORPUSCULAR VOLUME 88.4 fL (75.5-95.3); MONOCYTES % (AUTO) 4.9 % (0.0-11.0); NEUTROPHILS # (AUTO) 7.8 K/uL (1.8-8.9); NEUTROPHILS % (AUTO) 82.3 % (38.5-71.5); PLATELET COUNT (AUTO) 208 K/uL (179-408); RED BLOOD CELL COUNT(AUTO) 3.47 MIL/uL (3.63-4.92)
[2018-03-21 07:21] LABS: WHITE BLOOD COUNT (AUTO) 9.5 K/uL (3.8-11.8)
[2018-03-21 07:23] LABS: CARBON DIOXIDE 28 mmol/L (21-32); CHLORIDE 105 mmol/L (98-107); CREATININE 1.3 mg/dL (0.6-1.3); GLUCOSE 110 mg/dL (74-106); MAGNESIUM 2.2 mg/dL (1.8-2.4); PHOSPHOROUS 2.4 mg/dL (2.5-4.9); POTASSIUM 3.3 mmol/L (3.5-5.1); UREA NITROGEN, BLOOD 17 mg/dL (7-18)
--- NOTE | 2018-03-21 07:30 | NUR ---
RECEIVED SHIFT REPORT FROM NIGHT NURSE. PATIENT IS AWAKE AND ON BREATHING TREATMENT THAT SHE RECEIVES ROUTINELY. OTHER THAN THAT SHE IS ON 2L OF OXYGEN VIA NASAL CANNULA. PATIENT IS ORIENTED X1/2. RECEIVING HYDRATION AT 75 ML THROUGH LEFT AC. PATIENT HAS A LEIVA CATHETER AND IT IS DRAINING APPROPRIATELY. WILL CARRY OUT PLAN OF CARE, ANTIBIOTICS AND ACCUCHECKS. NO SIGNS OF DISTRESS NOTED, WILL CONTINUE TO MONITOR.
[2018-03-21] MEDS: LOSARTAN POTASSIUM 50 MG TABLET PO SCH (09:00)
[2018-03-21] MEDS ORDERED: predniSONE 20 MG TABLET PO SCH (09:00)
[2018-03-21] MEDS: MEMANTINE HCL 5 MG TABLET PO SCH (09:00)
[2018-03-21] MEDS: FUROSEMIDE 20 MG TABLET PO SCH (09:00)
[2018-03-21] MEDS: DOCUSATE SODIUM 100 MG CAPSULE PO SCH ×2 (09:00→16:41)
[2018-03-21] MEDS: DONEPEZIL 10 MG TABLET PO SCH (09:00)
[2018-03-21] MEDS: HYDROCHLOROTHIAZIDE 12.5 MG CAPSULE PO SCH (09:00)
[2018-03-21] MEDS: AMLODIPINE 5 MG TABLET PO SCH (09:00)
[2018-03-21] MEDS: CHOLECALCIFEROL 1,000 UNIT TABLET PO SCH (09:00)
[2018-03-21] MEDS: BETA CAROTENE/VIT C & E/MIN TABLET PO SCH (09:00)
[2018-03-21] MEDS: ASPIRIN EC 81 MG TABLET.DR PO SCH (09:00)
[2018-03-21] MEDS: CULTURELLE CAPSULE PO SCH (09:00)
[2018-03-21] MEDS: ESCITALOPRAM OXALATE 10 MG TABLET PO SCH (09:00)
[2018-03-21 11:05] VITALS: BP 119/47
[2018-03-21] MEDS: INSULIN REGULAR, HUMAN 300 UNIT/3 ML VIAL SQ PRN ×2 (11:53→16:33)
[2018-03-21] MEDS: CEFTRIAXONE 1 G in IV DEXTROSE 5% 50 ML IV SCH (11:54)
[2018-03-21] MEDS ORDERED: IPRATROPIUM BROMIDE 0.5 MG/2.5 ML NEBU NEB SCH (13:30)
[2018-03-21] MEDS ORDERED: CEPH-570 PO (14:05)
[2018-03-21] MEDS ORDERED: MAGNESIUM OXIDE 400 MG TABLET PO ONE (14:15)
[2018-03-21 15:18] VITALS: BP 123/52
[2018-03-21] MEDS ORDERED: NEUTRA PHOS PACKET PO ONE (15:45)
--- NOTE | 2018-03-21 18:15 | NUR ---
PATIENT DISCHARGED TO ASSISTED LIVING VIA PRIVATE CAR WITH DAUGHTER. REMOVED IV LINE AND WRISTBAND. PATIENT STABLE. TAKEN DOWN TO CAR ACCOMPANIED BY PHONE OPERATOR IN WHEELCHAIR.
[2018-03-22] MEDS ORDERED: PANTOPRAZOLE SODIUM 40 MG TABLET.DR PO SCH (07:00)
[2018-03-22] MEDS ORDERED: Medication Not On Formulary EA (Ascorbic Acid (Vitamin C) 1,000 MG) PO SCH (09:00)
[2018-03-22] MEDS ORDERED: ASCORBIC ACID 500 MG TABLET PO SCH (09:00)
[2018-03-22] MEDS ORDERED: predniSONE 20 MG TABLET PO SCH (09:00)
[2018-03-22] MEDS ORDERED: LOPERAMIDE HCL 2 MG CAPSULE PO SCH (09:00)
[2018-03-24] MEDS ORDERED: ALENDRONATE SODIUM 70 MG TABLET PO SCH (07:00)
== END 2018-03-21 18:15 | DRG 682 ==
LOC: ER 09:40 → TELE 16:18 → MED 03-20 10:47
PROVIDERS: ADMIT Registered Nurse; ATTEND Registered Nurse
DX: N17.0 Acute kidney failure with tubular necrosis (principal); G92 Toxic encephalopathy; N39.0 Urinary tract infection, site not specified; E44.1 Mild protein-calorie malnutrition; I13.0 Hypertensive heart and chronic kidney disease with heart failure and stage 1 through stage 4 chronic kidney disease, or unspecified chronic kidney disease; I50.30 Unspecified diastolic (congestive) heart failure; B96.20 Unspecified Escherichia coli [E. coli] as the cause of diseases classified elsewhere; Z16.11 Resistance to penicillins; Z16.29 Resistance to other single specified antibiotic; E78.5 Hyperlipidemia, unspecified; Z79.82 Long term (current) use of aspirin; Z79.84 Long term (current) use of oral hypoglycemic drugs; I48.91 Unspecified atrial fibrillation; M81.0 Age-related osteoporosis without current pathological fracture; M48.02 Spinal stenosis, cervical region; M25.78 Osteophyte, vertebrae; E03.9 Hypothyroidism, unspecified; F32.9 Major depressive disorder, single episode, unspecified; F41.9 Anxiety disorder, unspecified; E66.9 Obesity, unspecified; Z68.30 Body mass index [BMI] 30.0-30.9, adult; I49.1 Atrial premature depolarization; F03.90 Unspecified dementia, unspecified severity, without behavioral disturbance, psychotic disturbance, mood disturbance, and anxiety; Z71.3 Dietary counseling and surveillance; E11.22 Type 2 diabetes mellitus with diabetic chronic kidney disease; N18.9 Chronic kidney disease, unspecified; J44.9 Chronic obstructive pulmonary disease, unspecified; Z99.81 Dependence on supplemental oxygen; Z87.440 Personal history of urinary (tract) infections; M53.82 Other specified dorsopathies, cervical region; E87.6 Hypokalemia; E86.0 Dehydration; E78.00 Pure hypercholesterolemia, unspecified; G31.9 Degenerative disease of nervous system, unspecified
CPT/HCPCS: 36415; 70030-TC; 70450; 71045; 72125; 80307; 83605; 83735; 84100; 84443; 85025; 85730; 87040; 87077; 87086; 93005; 93880; 94640; 94664; 97110; 97116; 97530; A4663; C9113; G0378; G0480; G0480-TC; J0696; J1580; J1815; J3590; J7030; J7060; J7512

== ENCOUNTER 2018-11-16 18:08 | Inpatient (IN) | payer OTHER ==
[~2018-11-16] VITALS: Ht 157.5 cm; Wt 86.8 kg
[~2018-11-16 18:08] MED LIST changes: +ACET-73 PO; +ALBU2.5V13 NEB; +ALBUTEROL INH; +AMLO5TAB9 PO; +ASCO500C18 PO; +ASPI-605 PO; +CEPH-570 PO; -CEPH500C2 PO; +CHOL200078 PO; -CHOL50004 PO; +CRAN200C5 PO; -CRAN300T PO; +DOCU100C36 PO; +ESTRACE; +FURO20TA4 PO; +IPRA0.2S48 NEB; +IPRATROPIUM INH; -LOSA1TAB42 PO; -METF-440 PO; +PROP15DR EACHEYE
[2018-11-16] MEDS ORDERED: IPRATROPIUM BROMIDE 0.5 MG/2.5 ML NEBU NEB ONE (18:45)
[2018-11-16] MEDS ORDERED: ALBUTEROL SULFATE 2.5 MG/3 ML NEBU NEB ONE (18:45)
[2018-11-16] MEDS ORDERED: ALBUTEROL SULFATE 2.5 MG/3 ML NEBU ONE (19:00)
[2018-11-16] MEDS ORDERED: IPRATROPIUM BROMIDE 0.5 MG/2.5 ML NEBU ONE (19:00)
[2018-11-16 19:02] LABS: BASOPHILS % (AUTO) 0.2 % (0.0-2.0); EOSINOPHILS # (AUTO) 0.2 K/uL (0.0-0.7); HEMATOCRIT 32.8 % (31.2-41.9); LYMPHOCYTES # (AUTO) 1.7 K/uL (20.0-40.0); LYMPHOCYTES % (AUTO) 8.7 % (20.5-51.5); MEAN CORPUSCULAR HGB CONC 33 g/dL (32.3-35.6); MEAN CORPUSCULAR VOLUME 86.9 fL (75.5-95.3); MONOCYTES # (AUTO) 0.9 K/uL (2.0-10.0); MONOCYTES % (AUTO) 4.8 % (0.0-11.0); NEUTROPHILS # (AUTO) 16.3 K/uL (1.8-8.9); NEUTROPHILS % (AUTO) 85.3 % (38.5-71.5); PLATELET COUNT (AUTO) 250 K/uL (179-408); RED BLOOD CELL COUNT(AUTO) 3.78 MIL/uL (3.63-4.92); WHITE BLOOD COUNT (AUTO) 19.1 K/uL (3.8-11.8)
[2018-11-16 19:06] LABS: CARBON DIOXIDE 32 mmol/L (21-32); CHLORIDE 99 mmol/L (98-107); CREATININE 1.9 mg/dL (0.6-1.3); GLUCOSE 203 mg/dL (74-106); POTASSIUM 3.9 mmol/L (3.5-5.1); UREA NITROGEN, BLOOD 24 mg/dL (7-18)
[2018-11-16 19:19] LABS: *BILIRUBIN,URIN NEGATIVE (NEGATIVE); *BLOOD, URINE 3+ (NEGATIVE); *CLARITY,URINE CLOUDY (CLEAR); *COLOR,URINE PINK (YELLOW); *KETONES,URINE NEGATIVE (NEGATIVE); *UROBILINOGEN,URINE 0.2 E.U./dl (NORMAL); LEUKOCYTE ESTERASE ,URINE 3+ (NEGATIVE); NITRITE, URINE NEGATIVE (NEGATIVE); UGLUCOSE NEGATIVE (NEGATIVE)
--- NOTE | 2018-11-16 19:21 | NUR ---
SHIFT REPORT GIVEN TO AUSTIN Mccoy RN.
[2018-11-16 19:23] LABS: ALANINE AMINOTRANSFERASE 15 U/L (14-59); ALKALINE PHOSPHATASE 81 U/L (50-136); ASPARTATE AMINOTRANSFERASE 13 U/L (15-37); BILIRUBIN,DIRECT 0.1 mg/dL (0.0-0.2); BILIRUBIN,TOTAL 0.3 mg/dL (0.2-1.0); TOTAL PROTEIN, SERUM 6.7 g/dL (6.4-8.2)
[2018-11-16 19:51] LABS: BACTERIA,URINE MODERATE /HPF (NONE SEEN); RBC,URINE 80-100 /HPF (0-3); SQUAMOUS EPITHELIAL CELL,UR MODERATE /HPF (NONE SEEN); WBC,URINE TNTC /HPF (0-3)
[2018-11-16] MEDS ORDERED: CEFTRIAXONE 2 G in IV DEXTROSE 5% 100 ML IV ONE (20:00)
[2018-11-16] MEDS ORDERED: CEFTRIAXONE 1 G VIAL ONE (20:08)
--- NOTE | 2018-11-16 20:45 | NUR ---
ROBINA IVPB 2GRAM COMPLETED AT 2044.
[2018-11-16] MEDS ORDERED: ELLURA PO (21:03)
[2018-11-16] MEDS ORDERED: MV-M1CAP18 PO (21:03)
[2018-11-16] MEDS ORDERED: POTA20TA10 PO (21:03)
[2018-11-16] MEDS ORDERED: MELA5TAB PO (21:03)
[2018-11-16] MEDS ORDERED: PROP15DR OP (21:03)
[2018-11-16] MEDS ORDERED: CYAN-51 PO (21:03)
[2018-11-16] MEDS ORDERED: methylPREDNISolone SOD SUCC 125 MG/2 ML VIAL IV ONE (21:30)
[2018-11-16] MEDS ORDERED: methylPREDNISolone SOD SUCC 125 MG/2 ML VIAL ONE (21:41)
--- NOTE | 2018-11-16 21:53 | NUR ---
Pt. admitted to Med/Surg, under care of Dr. Carmen Mahmood NP. Diagnosis: Urinary Tract Infection Belongs List completed. MRSA swab done.
[2018-11-16 21:56] LABS: ABG BASE EXCESS 3.9 mmol/L; ABG HCO3 28.9 mmol/L; ABG PCO2 45.6 mmHg (35.0-45.0); ABG PO2 73.2 mmHg (75.0-100.0); ABG SITE LEFT RADIAL; ABG TOTAL HEMOGLOBIN 10.6 G/dL (12.0-16.0); MetHb 0.2 % (0.0-1.5); O2Hb 93.1 % (94.0-97.0); VENT MODE Nasal Cannula
--- NOTE | 2018-11-16 21:57 | NUR ---
Dr. Corrigan spoke to Dr. Harrison ([facility]) on telephone. Pt to be admitted here.
[2018-11-16] MEDS: CULTURELLE CAPSULE PO SCH (22:00)
[2018-11-16] MEDS: ATORVASTATIN 40 MG TABLET PO SCH (22:00)
[2018-11-16] MEDS ORDERED: ONDANSETRON 4 MG/2 ML VIAL IV PRN (22:00)
[2018-11-16] MEDS: MEMANTINE HCL 10 MG TABLET PO SCH (22:00)
[2018-11-16] MEDS: DONEPEZIL 10 MG TABLET PO SCH (22:00)
[2018-11-16] MEDS ORDERED: ALENDRONATE SODIUM 70 MG TABLET PO SCH (22:00)
[2018-11-16] MEDS ORDERED: DEXTROSE 50% 50 ML DISP.SYRIN IV PRN (22:00)
[2018-11-16] MEDS ORDERED: Z GUARD REMEDY PASTE 57 GM TUBE TOP PRN (22:00)
[2018-11-16] MEDS ORDERED: HYDROCODONE/APAP 5-325MG TABLET PO PRN (22:00)
--- NOTE | 2018-11-16 22:20 | NUR ---
RECEIVED PT FROM ER VIA AURELIO. DX:URINARY TRACT INFECTION UNDER DR. DORIAN DIEGO WIRE COILER. BELONGING LIST DONE. ADMISSION PROCESS AND CARE PLAN INITIATED. PT IN NO ACUTE DISTRESS.DETENTION ASSESSMENT DONE. FAMILY AT BEDSIDE. WILL CONTINUE TO MONITOR.
[2018-11-16 22:45] VITALS: BP 143/65
[2018-11-16] MEDS: IV NS 1000 ML 1,000 ML IV PRN (23:32)
[2018-11-17 05:15] VITALS: BP 125/54
--- NOTE | 2018-11-17 06:16 | NUR ---
PT SLEPT THROUGHOUT THE SHIFT. PT SHOWS NO SIGNS OF ACUTE DISTRESS. IV INTACT. PT ON 2L NASAL CANNULA. PT TENDS TO TAKE OFF HER OXYGEN NEED REORIENTATION. SAFETY AND COMFORT PROVIDED. WILL ENDORSE TO INCOMING NURSE FOR CONTINUITY OF CARE.
[2018-11-17] MEDS: LEVOTHYROXINE SODIUM 50 MCG TABLET PO SCH (06:34)
[2018-11-17] MEDS: BLOOD SUGAR DIAGNOSTIC 1 EACH STRIP VI SCH ×4 (06:35→20:21)
[2018-11-17 06:50] LABS: HEMATOCRIT 31.6 % (31.2-41.9); HEMOGLOBIN 10.2 g/dL (10.9-14.3); LYMPHOCYTES # (AUTO) 0.8 K/uL (20.0-40.0); LYMPHOCYTES % (AUTO) 4.5 % (20.5-51.5); MEAN CORPUSCULAR HEMOGLOBIN 28.4 uug (24.7-32.8); MEAN CORPUSCULAR HGB CONC 32 g/dL (32.3-35.6); MEAN CORPUSCULAR VOLUME 87.8 fL (75.5-95.3); MONOCYTES # (AUTO) 0.1 K/uL (2.0-10.0); MONOCYTES % (AUTO) 0.3 % (0.0-11.0); NEUTROPHILS % (AUTO) 95.2 % (38.5-71.5); PLATELET COUNT (AUTO) 231 K/uL (179-408); RED BLOOD CELL COUNT(AUTO) 3.59 MIL/uL (3.63-4.92); WHITE BLOOD COUNT (AUTO) 16.8 K/uL (3.8-11.8)
[2018-11-17 07:27] LABS: CARBON DIOXIDE 29 mmol/L (21-32); CHLORIDE 102 mmol/L (98-107); CHOLESTEROL 131 mg/dL (<200); GLUCOSE 259 mg/dL (74-106); HDL CHOLESTEROL 60 mg/dL (40-60); MAGNESIUM 2.3 mg/dL (1.8-2.4); PHOSPHOROUS 3.7 mg/dL (2.5-4.9); TRIGLYCERIDES 18 MG/DL (30-150); UREA NITROGEN, BLOOD 25 mg/dL (7-18)
[2018-11-17] MEDS: CYANOCOBALAMIN 1,000 MCG TABLET PO SCH (08:32)
[2018-11-17] MEDS: ESCITALOPRAM OXALATE 10 MG TABLET PO SCH (08:32)
[2018-11-17] MEDS: DOCUSATE SODIUM 100 MG CAPSULE PO SCH ×2 (08:33→17:53)
[2018-11-17] MEDS: CHOLECALCIFEROL 1,000 UNIT TABLET PO SCH (08:33)
[2018-11-17] MEDS: POTASSIUM CHLORIDE 20 MEQ TAB.PRT.SR PO SCH (08:33)
[2018-11-17] MEDS: ASCORBIC ACID 500 MG TABLET PO SCH (08:33)
[2018-11-17] MEDS: CULTURELLE CAPSULE PO SCH ×2 (08:33→20:20)
[2018-11-17] MEDS: MULTIVITAMINS,THERAPEUTIC TABLET PO SCH (08:33)
[2018-11-17] MEDS: AMLODIPINE 5 MG TABLET PO SCH (08:34)
[2018-11-17] MEDS: INSULIN REGULAR, HUMAN 300 UNIT/3 ML VIAL SQ PRN ×3 (08:36→20:24)
[2018-11-17 08:52] VITALS: BP 132/68
[2018-11-17 10:56] VITALS: BP 144/61
--- NOTE | 2018-11-17 11:45 | NUR ---
Received patient from recovery. Vital signs are stable. Patient resting comfortably in bed. Receiving 2L o2 via NC. Patient will not be followed by hospital bucket hooker but by surgeon Dr. Evans. Will continue to monitor throughout shift. Addendum: 11/17/18 at 1853 by FITZ MARIO RN Wrong patient
[2018-11-17] MEDS: IV NS 1000 ML 1,000 ML IV PRN (13:41)
[2018-11-17 15:22] VITALS: BP 122/50
[2018-11-17] MEDS: ASPIRIN EC 81 MG TABLET.DR PO SCH (17:53)
[2018-11-17] MEDS: MEMANTINE HCL 10 MG TABLET PO SCH (17:53)
--- NOTE | 2018-11-17 18:48 | NUR ---
Patient resting comfortably in bed. Complain of abdominal and back pain; medicated with PRN morphine accordingly. Patient relieved with medication. Patient continues to be on clear liquid diet as she is not tolerating this. Continue to receive D5LR at 125 cc/hr on right wrist. Advance diet as tolerated and decrease IV fluids when patient is able to eat. Continue strict I&Os. Bee still in place and dwelling well. Output of 400cc on AM shift. Vital signs are stable at this time. Continue to manage pain and monitor output. Will endorse to cage shift manager nurse accordingly. Addendum: 11/17/18 at 1853 by FITZ MARIO RN Wrong patient
--- NOTE | 2018-11-17 19:20 | NUR ---
RECEIVED PT AWAKE, ALERT AND ORIENTEDX3. PT SHOWS NO SIGNS OF ACUTE DISTRESS. IV INTACT. SAFETY AND COMFORT PROVIDED. PT ON 2L NASAL CANNULA. WILL CONTINUE TO MONITOR.
--- NOTE | 2018-11-17 19:31 | NUR ---
Patient in no acute distress. Compliant with care and medication. IV intact and patent. Safety and comfort provided at all times. Will endorse to residential monitor nurse accordingly.
[2018-11-17] MEDS: CEFTRIAXONE 1 G in IV DEXTROSE 5% 50 ML IV SCH (19:54)
[2018-11-17 20:18] VITALS: BP 115/50
[2018-11-17] MEDS: ATORVASTATIN 40 MG TABLET PO SCH (20:20)
[2018-11-17] MEDS: methylPREDNISolone SOD SUCC 40 MG/ML VIAL IV SCH (20:20)
[2018-11-17] MEDS: ACETAMINOPHEN 325 MG TABLET PO PRN (20:21)
[2018-11-17] MEDS: DONEPEZIL 10 MG TABLET PO SCH (20:21)
[2018-11-17 21:32] LABS: *BILIRUBIN,URIN NEGATIVE (NEGATIVE); *BLOOD, URINE 2+ (NEGATIVE); *CLARITY,URINE CLOUDY (CLEAR); *COLOR,URINE YELLOW (YELLOW); *KETONES,URINE NEGATIVE (NEGATIVE); *UROBILINOGEN,URINE 0.2 E.U./dl (NORMAL); LEUKOCYTE ESTERASE ,URINE 2+ (NEGATIVE); NITRITE, URINE NEGATIVE (NEGATIVE); UGLUCOSE NEGATIVE (NEGATIVE)
[2018-11-17 21:43] LABS: *CREATININE,URINE 66.4 mg/dL (30-125); *URINE TOTAL PROTEIN RANDOM 56.8 mg/dL (<150/24HR)
[2018-11-17 21:45] LABS: BACTERIA,URINE MODERATE /HPF (NONE SEEN); SQUAMOUS EPITHELIAL CELL,UR FEW /HPF (NONE SEEN); WBC,URINE 50-80 /HPF (0-3)
[2018-11-18] MEDS: IV NS 1000 ML 1,000 ML IV PRN (04:32)
[2018-11-18 05:45] VITALS: BP 137/96
--- NOTE | 2018-11-18 06:23 | NUR ---
PT SLEPT INTERMITTENTLY. PT SHOWS NO SIGNS OF ACUTE DISTRESS. PT ON 2L NASAL CANNULA. PRESCRIBED MEDICATION GIVEN AND PT TOLERATED IT WELL. PT COOPERATIVE WITH CARE. PT TURNED AND REPOSITIONED. SAFETY AND COMFORT PROVIDED. WILL CONTINUE TO MONITOR.
[2018-11-18] MEDS: LEVOTHYROXINE SODIUM 50 MCG TABLET PO SCH (06:30)
[2018-11-18] MEDS: BLOOD SUGAR DIAGNOSTIC 1 EACH STRIP VI SCH ×4 (06:31→21:30)
[2018-11-18 06:49] LABS: BASOPHILS % (AUTO) 0.2 % (0.0-2.0); EOSINOPHILS % (AUTO) 0.1 % (0.0-7.0); HEMATOCRIT 28.7 % (31.2-41.9); HEMOGLOBIN 9.4 g/dL (10.9-14.3); LYMPHOCYTES # (AUTO) 0.5 K/uL (20.0-40.0); MEAN CORPUSCULAR HEMOGLOBIN 29.8 uug (24.7-32.8); MEAN CORPUSCULAR HGB CONC 33 g/dL (32.3-35.6); MEAN CORPUSCULAR VOLUME 91.7 fL (75.5-95.3); MONOCYTES # (AUTO) 0.1 K/uL (2.0-10.0); NEUTROPHILS # (AUTO) 5.2 K/uL (1.8-8.9); NEUTROPHILS % (AUTO) 90.7 % (38.5-71.5); PLATELET COUNT (AUTO) 176 K/uL (179-408); RED BLOOD CELL COUNT(AUTO) 3.14 MIL/uL (3.63-4.92); WHITE BLOOD COUNT (AUTO) 5.7 K/uL (3.8-11.8)
[2018-11-18 07:07] LABS: ALANINE AMINOTRANSFERASE 7 U/L (14-59); ALKALINE PHOSPHATASE 99 U/L (50-136); ASPARTATE AMINOTRANSFERASE 14 U/L (15-37); BILIRUBIN,TOTAL 0.3 mg/dL (0.2-1.0); CARBON DIOXIDE 19 mmol/L (21-32); CHLORIDE 108 mmol/L (98-107); CREATINE KINASE, TOTAL 71 U/L (26-192); CREATININE 1.5 mg/dL (0.6-1.3); GLUCOSE 249 mg/dL (74-106); MAGNESIUM 1.9 mg/dL (1.8-2.4); POTASSIUM 4.2 mmol/L (3.5-5.1); TOTAL PROTEIN, SERUM 7.3 g/dL (6.4-8.2); UREA NITROGEN, BLOOD 25 mg/dL (7-18)
[2018-11-18 07:20] LABS: THYROID STIMULATING HORMONE 3.204 mIU/mL (0.358-3.740)
[2018-11-18 08:00] VITALS: BP 143/64
[2018-11-18] MEDS: INSULIN REGULAR, HUMAN 300 UNIT/3 ML VIAL SQ PRN ×3 (08:33→21:33)
[2018-11-18] MEDS: methylPREDNISolone SOD SUCC 40 MG/ML VIAL IV SCH ×2 (08:34→21:20)
[2018-11-18] MEDS: ESCITALOPRAM OXALATE 10 MG TABLET PO SCH (08:34)
[2018-11-18] MEDS: CHOLECALCIFEROL 1,000 UNIT TABLET PO SCH (08:34)
[2018-11-18] MEDS: DOCUSATE SODIUM 100 MG CAPSULE PO SCH ×2 (08:35→17:25)
[2018-11-18] MEDS: CULTURELLE CAPSULE PO SCH ×2 (08:35→21:20)
[2018-11-18] MEDS: AMLODIPINE 5 MG TABLET PO SCH (08:35)
[2018-11-18] MEDS: POTASSIUM CHLORIDE 20 MEQ TAB.PRT.SR PO SCH (08:35)
[2018-11-18] MEDS: CYANOCOBALAMIN 1,000 MCG TABLET PO SCH (08:35)
[2018-11-18] MEDS: MULTIVITAMINS,THERAPEUTIC TABLET PO SCH (08:35)
[2018-11-18] MEDS: ASCORBIC ACID 500 MG TABLET PO SCH (08:35)
--- NOTE | 2018-11-18 10:43 | NUR ---
PT IN NO ACUTE DISTRESS. PRESCRIBED MEDICATION GIVEN AND PT TOLERATED IT WELL.PT WALKED THE PT. PT IN MODERATED ASSIST. DOESN'T WANT TO WALK AND GET OUT OUT OF THE ROOM.IV INTACT. ENDORSE TO INCOMING NURSE FOR CONTINUITY OF CARE.
[2018-11-18 12:00] VITALS: BP 123/63
[2018-11-18 16:20] VITALS: BP 137/60
--- NOTE | 2018-11-18 16:23 | NUR ---
Recieved patient alert and oriented X2-3, primarily belarusian speaking, dentures lab technician services utilized. Peripheal IV to right wrist infusing well, no signs of infection or phelbitis observed. Patient denies pain, respiratory distress or pain at this time.
--- NOTE | 2018-11-18 16:34 | NUR ---
All orders carried out this shift, and patient tolerated all procedure and is compliant with all care this shift.
[2018-11-18] MEDS: MEMANTINE HCL 10 MG TABLET PO SCH (18:17)
[2018-11-18] MEDS: ASPIRIN EC 81 MG TABLET.DR PO SCH (18:17)
[2018-11-18 20:32] VITALS: BP 136/56
[2018-11-18] MEDS: CEFTRIAXONE 1 G in IV DEXTROSE 5% 50 ML IV SCH (20:57)
[2018-11-18] MEDS: DONEPEZIL 10 MG TABLET PO SCH (21:20)
[2018-11-18] MEDS: ATORVASTATIN 40 MG TABLET PO SCH (21:20)
[2018-11-19 06:20] VITALS: BP 116/62
[2018-11-19] MEDS: LEVOTHYROXINE SODIUM 50 MCG TABLET PO SCH (06:46)
[2018-11-19] MEDS: BLOOD SUGAR DIAGNOSTIC 1 EACH STRIP VI SCH ×4 (06:46→20:17)
--- NOTE | 2018-11-19 07:15 | NUR ---
Received pt. in bed resting. No signs of acute distress noted. Safety precautions in place. Bed low, locked and side rails up x 2. Call light within reach. Will continue to monitor.
[2018-11-19 07:31] LABS: BASOPHILS % (AUTO) 0.1 % (0.0-2.0); HEMATOCRIT 30.2 % (31.2-41.9); HEMOGLOBIN 9.7 g/dL (10.9-14.3); LYMPHOCYTES # (AUTO) 1.1 K/uL (20.0-40.0); LYMPHOCYTES % (AUTO) 8.5 % (20.5-51.5); MEAN CORPUSCULAR HEMOGLOBIN 28.4 uug (24.7-32.8); MEAN CORPUSCULAR HGB CONC 32 g/dL (32.3-35.6); MEAN CORPUSCULAR VOLUME 88.4 fL (75.5-95.3); MONOCYTES # (AUTO) 0.3 K/uL (2.0-10.0); MONOCYTES % (AUTO) 2.3 % (0.0-11.0); NEUTROPHILS # (AUTO) 11.4 K/uL (1.8-8.9); NEUTROPHILS % (AUTO) 89.1 % (38.5-71.5); PLATELET COUNT (AUTO) 222 K/uL (179-408); RED BLOOD CELL COUNT(AUTO) 3.42 MIL/uL (3.63-4.92); WHITE BLOOD COUNT (AUTO) 12.8 K/uL (3.8-11.8)
[2018-11-19 07:48] LABS: ALANINE AMINOTRANSFERASE 28 U/L (14-59); ALKALINE PHOSPHATASE 64 U/L (50-136); ASPARTATE AMINOTRANSFERASE 14 U/L (15-37); BILIRUBIN,TOTAL 0.2 mg/dL (0.2-1.0); CARBON DIOXIDE 27 mmol/L (21-32); CHLORIDE 104 mmol/L (98-107); CREATININE 1.5 mg/dL (0.6-1.3); GLUCOSE 203 mg/dL (74-106); MAGNESIUM 2.1 mg/dL (1.8-2.4); PHOSPHOROUS 2.8 mg/dL (2.5-4.9); POTASSIUM 4.1 mmol/L (3.5-5.1); UREA NITROGEN, BLOOD 30 mg/dL (7-18)
[2018-11-19 08:00] VITALS: BP 149/69
[2018-11-19] MEDS: POTASSIUM CHLORIDE 20 MEQ TAB.PRT.SR PO SCH (09:07)
[2018-11-19] MEDS: CYANOCOBALAMIN 1,000 MCG TABLET PO SCH (09:07)
[2018-11-19] MEDS: CULTURELLE CAPSULE PO SCH ×2 (09:07→20:10)
[2018-11-19] MEDS: DOCUSATE SODIUM 100 MG CAPSULE PO SCH ×2 (09:07→17:00)
[2018-11-19] MEDS: CHOLECALCIFEROL 1,000 UNIT TABLET PO SCH (09:07)
[2018-11-19] MEDS: MULTIVITAMINS,THERAPEUTIC TABLET PO SCH (09:07)
[2018-11-19] MEDS: ESCITALOPRAM OXALATE 10 MG TABLET PO SCH (09:07)
[2018-11-19] MEDS: ASCORBIC ACID 500 MG TABLET PO SCH (09:07)
[2018-11-19] MEDS: methylPREDNISolone SOD SUCC 40 MG/ML VIAL IV SCH (09:08)
[2018-11-19] MEDS: AMLODIPINE 5 MG TABLET PO SCH (09:11)
[2018-11-19] MEDS: IV NS 1000 ML 1,000 ML IV PRN (09:11)
[2018-11-19] MEDS: INSULIN REGULAR, HUMAN 300 UNIT/3 ML VIAL SQ PRN ×4 (09:17→20:18)
[2018-11-19 11:25] VITALS: BP 135/69
[2018-11-19 11:59] LABS: IRON, SERUM 25 ug/dL (50-175)
[2018-11-19 12:08] LABS: A/G RATIO 0.9 (0.7-1.7); ALBUMIN 3.2 g/dL (2.9-4.4); ALPHA-1-GLOBULIN 0.2 g/dL (0.0-0.4); ALPHA-2-GLOBULIN 0.8 g/dL (0.4-1.0); BETA GLOBULIN 1.1 g/dL (0.7-1.3); GAMMA GLOBULIN 1.2 g/dL (0.4-1.8); GLOBULIN, TOTAL 3.4 g/dL (2.2-3.9); M-SPIKE Not Observed g/dL (Not Observed)
[2018-11-19] MEDS: CEFTAZIDIME 1 G in IV DEXTROSE 5% 50 ML IV SCH (12:10)
[2018-11-19 14:52] LABS: *OCCULT BLOOD STOOL NEGATIVE (NEGATIVE)
[2018-11-19 16:00] VITALS: BP 146/71
[2018-11-19] MEDS: ASPIRIN EC 81 MG TABLET.DR PO SCH (17:49)
[2018-11-19] MEDS: MEMANTINE HCL 10 MG TABLET PO SCH (17:50)
--- NOTE | 2018-11-19 18:31 | NUR ---
Patient accompanied by daughter at the bedside. Patient consumed dinner. No respiratory or any type of distress noted. No acute change in condition. Side rails up x 2. Bed locked, low, semi fowlers. Supplemental O2 on. Call light within reach.
--- NOTE | 2018-11-19 19:30 | NUR ---
RECEIVED PT AWAKE, ALERT AND ORIENTEDX2. PT SHOWS NO SIGNS OF ACUTE DISTRESS.DAUGHTER AT BEDSIDE. IV INTACT. PT ON 2L NASAL CANNULA. SAFETY AND COMFORT PROVIDED. WILL CONTINUE TO MONITOR.
[2018-11-19] MEDS: IPRATROPIUM BROMIDE 0.5 MG/2.5 ML NEBU NEB PRN (19:43)
[2018-11-19 20:03] VITALS: BP 155/76
[2018-11-19] MEDS: ATORVASTATIN 40 MG TABLET PO SCH (20:10)
[2018-11-19] MEDS: DONEPEZIL 10 MG TABLET PO SCH (20:10)
[2018-11-19] MEDS: ACETAMINOPHEN 325 MG TABLET PO PRN (20:10)
[2018-11-20] MEDS: IV NS 1000 ML 1,000 ML IV PRN ×2 (02:24→21:18)
[2018-11-20] MEDS: IPRATROPIUM BROMIDE 0.5 MG/2.5 ML NEBU NEB PRN ×2 (06:09→19:44)
--- NOTE | 2018-11-20 06:30 | NUR ---
PT SLEPT INTERMITTENTLY. PT SHOWS NO SIGNS OF ACUTE DISTRESS. IV INTACT. PT FORGETFUL NEEDS REORIENTATION. PT ON 2L NASAL CANNULA. PRESCRIBED MEDICATION GIVEN AND PT TOLERATED IT WELL. ALL NEEDS ARE MET. SAFETY AND COMFORT PROVIDED. WILL ENDORSE TO INCOMING NURSE FOR CONTINUITY OF CARE.
[2018-11-20 06:35] VITALS: BP 130/62
[2018-11-20] MEDS: LEVOTHYROXINE SODIUM 50 MCG TABLET PO SCH (06:39)
[2018-11-20] MEDS: BLOOD SUGAR DIAGNOSTIC 1 EACH STRIP VI SCH ×4 (06:40→21:25)
--- NOTE | 2018-11-20 07:20 | NUR ---
PATIENT RECEIVED IN BED, AWAKE, AOX1 TO SELF. DENIES ANY PAIN OR SOB AT THIS TIME. LT. LF IV WITH NS AT 75CC/HR RUNNING, AND INTACT. SAFETY AND FALL PREVENTION IN PLACE. BED IN LOW POSITION AND LOCKED. CALL LIGHT IN REACH. ALL NEEDS MET AT THIS TIME. WILL CONTINUE TO MONITOR.
[2018-11-20 07:32] LABS: BASOPHILS % (AUTO) 0.2 % (0.0-2.0); EOSINOPHILS % (AUTO) 0.5 % (0.0-7.0); HEMATOCRIT 32.2 % (31.2-41.9); HEMOGLOBIN 10.8 g/dL (10.9-14.3); LYMPHOCYTES # (AUTO) 1.8 K/uL (20.0-40.0); LYMPHOCYTES % (AUTO) 19.3 % (20.5-51.5); MEAN CORPUSCULAR HEMOGLOBIN 29.5 uug (24.7-32.8); MEAN CORPUSCULAR HGB CONC 34 g/dL (32.3-35.6); MEAN CORPUSCULAR VOLUME 87.5 fL (75.5-95.3); MONOCYTES # (AUTO) 0.7 K/uL (2.0-10.0); MONOCYTES % (AUTO) 7.5 % (0.0-11.0); NEUTROPHILS # (AUTO) 6.8 K/uL (1.8-8.9); NEUTROPHILS % (AUTO) 72.5 % (38.5-71.5); PLATELET COUNT (AUTO) 261 K/uL (179-408); RED BLOOD CELL COUNT(AUTO) 3.68 MIL/uL (3.63-4.92); WHITE BLOOD COUNT (AUTO) 9.3 K/uL (3.8-11.8)
[2018-11-20 07:45] LABS: CARBON DIOXIDE 30 mmol/L (21-32); CHLORIDE 104 mmol/L (98-107); CREATININE 1.3 mg/dL (0.6-1.3); GLUCOSE 106 mg/dL (74-106); MAGNESIUM 2.1 mg/dL (1.8-2.4); PHOSPHOROUS 2.3 mg/dL (2.5-4.9); POTASSIUM 3.8 mmol/L (3.5-5.1); UREA NITROGEN, BLOOD 24 mg/dL (7-18)
[2018-11-20] MEDS: CULTURELLE CAPSULE PO SCH ×2 (08:35→21:19)
[2018-11-20] MEDS: ASCORBIC ACID 500 MG TABLET PO SCH (08:35)
[2018-11-20] MEDS: CHOLECALCIFEROL 1,000 UNIT TABLET PO SCH (08:35)
[2018-11-20] MEDS: ESCITALOPRAM OXALATE 10 MG TABLET PO SCH (08:36)
[2018-11-20] MEDS: CYANOCOBALAMIN 1,000 MCG TABLET PO SCH (08:36)
[2018-11-20] MEDS: POTASSIUM CHLORIDE 20 MEQ TAB.PRT.SR PO SCH (08:36)
[2018-11-20] MEDS: MULTIVITAMINS,THERAPEUTIC TABLET PO SCH (08:36)
[2018-11-20] MEDS: DOCUSATE SODIUM 100 MG CAPSULE PO SCH ×2 (08:36→16:50)
[2018-11-20] MEDS: AMLODIPINE 5 MG TABLET PO SCH (08:44)
[2018-11-20 11:35] VITALS: BP 139/62
[2018-11-20] MEDS ORDERED: POTASSIUM PHOSPHATE MM 7.5 MMOL in IV DEXTROSE 5% 100 ML IV ONE (12:00)
[2018-11-20] MEDS: CEFTAZIDIME 1 G in IV DEXTROSE 5% 50 ML IV SCH (12:28)
[2018-11-20 15:46] VITALS: BP 136/58
[2018-11-20] MEDS: ASPIRIN EC 81 MG TABLET.DR PO SCH (16:50)
[2018-11-20] MEDS: MEMANTINE HCL 10 MG TABLET PO SCH (16:50)
--- NOTE | 2018-11-20 17:57 | NUR ---
PATIENT AOX1, CONFUSED TO PLACE AND TIME AND SITUATION. RN CONTINUED TO REORIENT PATIENT THROUGHOUT THE SHIFT. LT. FA IV IN PLACE WITH FLUIDS RUNNING. PATIENT COMPLIANT WITH ALL MEDICATION AND TREATMENT THROUGHOUT THE SHIFT. SAFETY AND FALL PRECAUTIONS CONTINUED. BED ALARM ON. BED IN LOW AND LOCKED POSITION. CALL LIGHT IN REACH.
--- NOTE | 2018-11-20 19:20 | NUR ---
Beginning of Shift Received report from Fidelia BOCANEGRA. Patient is in bed, awake alert and verbally responsive. Oriented to self, reoriented with place and time. Noted with forgetfulness and confusion. Pleasant. Not agitated/anxious. Lung sounds with rhonchi on bilateral lobes. Appears congested. RT notified and requested breathing treatment for patient. IV is running on L forearm NS 75cc/hr. No signs of infiltration noted. Afebrile. No other signs of infection noted. Will continue to monitor.
[2018-11-20 20:10] VITALS: BP 112/67
[2018-11-20] MEDS: ATORVASTATIN 40 MG TABLET PO SCH (21:19)
[2018-11-20] MEDS: DONEPEZIL 10 MG TABLET PO SCH (21:19)
--- NOTE | 2018-11-20 23:30 | NUR ---
IV line pulled out Patient noted to have taken off IV line on L forearm. Bleeding on site noted. Covered with dressing. Applied Ice pack on site and kept hand elevated. NS admin paused. Pt confused and appears slightly anxious, redirected and reoriented. Effective. Will wait until patient cooperative before inserting new IV site.
--- NOTE | 2018-11-21 00:45 | NUR ---
New IV site on R hand Luisa RN inserted 20 g peripheral IV site on R hand. Intact and patent. Flushed with 5cc NS. Reinforced with kerlix and tape. Pt appears increasingly confused, redirected. Will continue to monitor patient.
[2018-11-21 05:05] VITALS: BP 120/65
[2018-11-21] MEDS: IPRATROPIUM BROMIDE 0.5 MG/2.5 ML NEBU NEB PRN ×2 (06:12→21:23)
[2018-11-21] MEDS: LEVOTHYROXINE SODIUM 50 MCG TABLET PO SCH (06:46)
[2018-11-21] MEDS: BLOOD SUGAR DIAGNOSTIC 1 EACH STRIP VI SCH ×4 (06:46→20:14)
--- NOTE | 2018-11-21 06:57 | NUR ---
End Of Shift Pt intermittently asleep entire night, maximum of 2-3 hours of sleep throughout the night. Pt pulled out IV again at 0530, reinserted on R AC 20 G. reinforced with Coband. IV running with no issues. BS: 112. No signs of hypo/hyperglycemia. Noted with congestion, breathing tx done by RT. Will endorse accordingly.
[2018-11-21 07:58] LABS: ALANINE AMINOTRANSFERASE 24 U/L (14-59); ALKALINE PHOSPHATASE 65 U/L (50-136); ASPARTATE AMINOTRANSFERASE 14 U/L (15-37); BILIRUBIN,TOTAL 0.2 mg/dL (0.2-1.0); CARBON DIOXIDE 29 mmol/L (21-32); CHLORIDE 105 mmol/L (98-107); CREATININE 1.4 mg/dL (0.6-1.3); GLUCOSE 132 mg/dL (74-106); PHOSPHOROUS 3.3 mg/dL (2.5-4.9); TOTAL PROTEIN, SERUM 5.9 g/dL (6.4-8.2); UREA NITROGEN, BLOOD 22 mg/dL (7-18)
[2018-11-21 08:02] LABS: BASOPHILS % (AUTO) 0.3 % (0.0-2.0); EOSINOPHILS # (AUTO) 0.5 K/uL (0.0-0.7); EOSINOPHILS % (AUTO) 5.4 % (0.0-7.0); HEMATOCRIT 34.1 % (31.2-41.9); HEMOGLOBIN 11.2 g/dL (10.9-14.3); LYMPHOCYTES # (AUTO) 1.6 K/uL (20.0-40.0); LYMPHOCYTES % (AUTO) 18.5 % (20.5-51.5); MEAN CORPUSCULAR HEMOGLOBIN 28.5 uug (24.7-32.8); MEAN CORPUSCULAR HGB CONC 33 g/dL (32.3-35.6); MONOCYTES # (AUTO) 0.7 K/uL (2.0-10.0); MONOCYTES % (AUTO) 7.3 % (0.0-11.0); NEUTROPHILS # (AUTO) 6.1 K/uL (1.8-8.9); NEUTROPHILS % (AUTO) 68.5 % (38.5-71.5); PLATELET COUNT (AUTO) 256 K/uL (179-408); RED BLOOD CELL COUNT(AUTO) 3.92 MIL/uL (3.63-4.92); WHITE BLOOD COUNT (AUTO) 8.9 K/uL (3.8-11.8)
[2018-11-21] MEDS: ASCORBIC ACID 500 MG TABLET PO SCH (09:29)
[2018-11-21] MEDS: CYANOCOBALAMIN 1,000 MCG TABLET PO SCH (09:29)
[2018-11-21] MEDS: POTASSIUM CHLORIDE 20 MEQ TAB.PRT.SR PO SCH (09:29)
[2018-11-21] MEDS: CULTURELLE CAPSULE PO SCH ×2 (09:29→20:19)
[2018-11-21] MEDS: DOCUSATE SODIUM 100 MG CAPSULE PO SCH ×2 (09:29→17:21)
[2018-11-21] MEDS: MULTIVITAMINS,THERAPEUTIC TABLET PO SCH (09:29)
[2018-11-21] MEDS: CHOLECALCIFEROL 1,000 UNIT TABLET PO SCH (09:30)
[2018-11-21] MEDS: AMLODIPINE 5 MG TABLET PO SCH (09:30)
[2018-11-21] MEDS: ESCITALOPRAM OXALATE 10 MG TABLET PO SCH (09:30)
[2018-11-21 11:55] VITALS: BP 141/59
[2018-11-21] MEDS: CEFTAZIDIME 1 G in IV DEXTROSE 5% 50 ML IV SCH (11:56)
[2018-11-21] MEDS ORDERED: LEVO500T2 PO (15:06)
[2018-11-21] MEDS ORDERED: ACET325T53 PO (15:06)
[2018-11-21 16:14] VITALS: BP 137/64
[2018-11-21] MEDS: ASPIRIN EC 81 MG TABLET.DR PO SCH (17:22)
[2018-11-21] MEDS: MEMANTINE HCL 10 MG TABLET PO SCH (17:22)
--- NOTE | 2018-11-21 18:07 | NUR ---
Patient confused, disoriented, following simple commands. No complaints of pain. Scheduled nebulizer treatments given. Accuchecks in place, no coverage needed. Skin and fall precautions in place. Continues on IV antibiotics, afebrile. 2D Echo done today. Discharge done, pending transportation mixing picker tender. Addendum: 11/21/18 at 1850 by ADRIANA BURGOS RN Patient discharge held until tomorrow morning. Daughter Shaista made aware via telephone call and Donaldo from [employer] made aware as well. Patient wheezing, breathing treatment given.
--- NOTE | 2018-11-21 20:00 | NUR ---
RECEIVED PATIENT AWAKE IN BED. ALERT TO SELF ONLY. CONFUSED AND DISORIENTED. PATIENT ON RA SATING 89-90%. RT AT BEDSIDE TO GIVE BREATHING TX. NO RESP. DISTRESS NOTED. NO SOB NOTED. NO S/S OF PAIN OR DISCOMFORT. NO FACIAL GRIMACE NOTED. IVF INFUSING WELL TO RIGHT AC. BED ALARM ON. CALL LIGHT IN REACH. ALL NEEDS ATTENDED. WILL CONTINUE TO MONITOR AND ASSESS.
[2018-11-21] MEDS: ATORVASTATIN 40 MG TABLET PO SCH (20:19)
[2018-11-21] MEDS: DONEPEZIL 10 MG TABLET PO SCH (20:19)
[2018-11-21] MEDS: INSULIN REGULAR, HUMAN 300 UNIT/3 ML VIAL SQ PRN (20:21)
[2018-11-21 20:29] VITALS: BP 129/72
[2018-11-22 04:00] VITALS: BP 158/64
[2018-11-22] MEDS: LEVOTHYROXINE SODIUM 50 MCG TABLET PO SCH (06:32)
[2018-11-22] MEDS: BLOOD SUGAR DIAGNOSTIC 1 EACH STRIP VI SCH (06:33)
--- NOTE | 2018-11-22 06:40 | NUR ---
Patient slept well, no distress noted, no complaints made. Noted patient to be discharged this morning with ambulance arranged already, scheduled for berry picker at 0800,will endorse accordingly.
--- NOTE | 2018-11-22 07:05 | NUR ---
PATIENT RECEIVED IN BED ASLEEP, EASY TO WAKE UP. AOX1. DENIES CHEST PAIN OR SOB AT THIS TIME. RT AC IV INTACT AND FLUSHING WELL. SAFETY AND FALL PREVENTION IN PLACE. CALL LIGHT IN REACH. BED IN LOW POSITION AND LOCKED. WILL CONTINUE TO MONITOR. PLAN FOR DISCHARGE AT 0900. TRANSPORT TO DISTRICT OR DISTRICT OFFICE DIRECTOR PT.
[2018-11-22] MEDS: ASCORBIC ACID 500 MG TABLET PO SCH (08:43)
[2018-11-22] MEDS: ESCITALOPRAM OXALATE 10 MG TABLET PO SCH (08:43)
[2018-11-22] MEDS: CULTURELLE CAPSULE PO SCH (08:43)
[2018-11-22] MEDS: CHOLECALCIFEROL 1,000 UNIT TABLET PO SCH (08:43)
[2018-11-22] MEDS: DOCUSATE SODIUM 100 MG CAPSULE PO SCH (08:43)
[2018-11-22 08:44] VITALS: BP 155/63
[2018-11-22] MEDS: AMLODIPINE 5 MG TABLET PO SCH (08:44)
[2018-11-22] MEDS: POTASSIUM CHLORIDE 20 MEQ TAB.PRT.SR PO SCH (08:44)
[2018-11-22] MEDS: CYANOCOBALAMIN 1,000 MCG TABLET PO SCH (08:44)
[2018-11-22] MEDS: MULTIVITAMINS,THERAPEUTIC TABLET PO SCH (08:44)
--- NOTE | 2018-11-22 10:00 | NUR ---
PATIENT DISCHARGED TO BOARD [facility] CARE. DISCHARGE INSTRUCTIONS WENT OVER WITH PATIENT AND GIVEN TO THE TRANSPORT STAFF. DISCHARGE RX PROVIDED. BELONGINGS LIST COMPLETED. IV TAKEN OUT AND HOSPITAL ID BAND TAKEN OUT BEFORE DISCHARGE. PATIENT LEFT IN STABLE CONDITION AND ON 2L O2.
== END 2018-11-22 10:00 | disposition home health service (06) | DRG 871 ==
LOC: ER 18:08 → MEDSURG3 22:02
PROVIDERS: ADMIT Nurse Practitioner Acute Care; ATTEND Student in an Organized Health Care Education/Training Program
DX: A41.52 Sepsis due to Pseudomonas (principal); J96.21 Acute and chronic respiratory failure with hypoxia; N17.0 Acute kidney failure with tubular necrosis; G92 Toxic encephalopathy; I50.31 Acute diastolic (congestive) heart failure; J44.1 Chronic obstructive pulmonary disease with (acute) exacerbation; N39.0 Urinary tract infection, site not specified; D68.59 Other primary thrombophilia; I13.0 Hypertensive heart and chronic kidney disease with heart failure and stage 1 through stage 4 chronic kidney disease, or unspecified chronic kidney disease; E44.1 Mild protein-calorie malnutrition; I48.0 Paroxysmal atrial fibrillation; E11.22 Type 2 diabetes mellitus with diabetic chronic kidney disease; N18.2 Chronic kidney disease, stage 2 (mild); E78.5 Hyperlipidemia, unspecified; E03.9 Hypothyroidism, unspecified; F03.90 Unspecified dementia, unspecified severity, without behavioral disturbance, psychotic disturbance, mood disturbance, and anxiety; Z90.49 Acquired absence of other specified parts of digestive tract; Z68.35 Body mass index [BMI] 35.0-35.9, adult; E66.9 Obesity, unspecified; F32.9 Major depressive disorder, single episode, unspecified; F41.9 Anxiety disorder, unspecified; I25.10 Atherosclerotic heart disease of native coronary artery without angina pectoris; Z79.82 Long term (current) use of aspirin; Z79.84 Long term (current) use of oral hypoglycemic drugs; Z96.659 Presence of unspecified artificial knee joint; D64.9 Anemia, unspecified
CPT/HCPCS: 36415; 36600; 70030-TC; 71045; 74018; 76770; 83550; 83605; 83735; 83970; 84100; 84155; 84156; 84165; 84300; 84443; 85025; 87040; 87077; 87086; 93005; 93307; 94640; A4663; C1758; G0378; J0696; J0713; J1815; J2920; J2930; J3490; J3590; J7030; J7060